=== PATIENT | female | born 1930 | race Caucasian/White ===

== ENCOUNTER 2017-05-01 14:21 | Emergency (ER) | payer MEDICARE, OTHER ==
--- NOTE | 2017-05-01 14:45 | ED Physician Documentation ---
PD HPI FOCAL NEURO - Stated complaint Stated Complaint: STROKE LIKE SYMPTOM - Chief complaint Chief Complaint: Neuro - History obtained from History obtained from: Patient - History of Present Illness Timing - onset: Other (86-year-old woman with history of giant cell arteritis, currently on 6-7 mg of prednisone a day. She says she gets worse symptoms if she goes down to 6 mg. Starting yesterday she had a left-sided headache with some facial numbness on the left and decreased vision in the right eye only which is now better. She still has mild facial numbness but the other symptoms are gone. No weakness, numbness, or tingling in the arms or legs. She also has a history of a vertebral aneurysm, sounds like that was treated conservatively.) Review of Systems Constitutional: denies: Fever, Chills, Fatigue (But chronically poor sleep from the prednisone) Nose: denies: Rhinorrhea / runny nose, Congestion Cardiac: denies: Chest pain / pressure, Palpitations GI: denies: Abdominal Pain, Nausea, Vomiting PD PAST MEDICAL HISTORY - Past Medical History Cardiovascular: Hypertension, Arrhythmia Respiratory: None Neuro: CVA, TIA, Headache/migraine Endocrine/Autoimmune: Systemic lupus erythematosus GI: Other HEENT: None Musculoskeletal: Osteoarthritis - Past Surgical History 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 HEENT: Cataracts - Present Medications Home Medications: Ambulatory Orders Medication Instructions Recorded Confirmed Multivitamin [Multi-Vitamin Daily] 1 each PO DAILY 11/21/13 05/01/17 Prednisone 6 mg PO DAILY 11/21/13 05/01/17 Clopidogrel [Plavix] 75 mg PO DAILY 05/29/15 05/01/17 Vitamins A and D [Vitamin A and D] 1 mg PO DAILY 05/29/15 05/01/17 - Allergies Allergies/Adverse Reactions: Allergies Allergy/AdvReac Type Severity Reaction Status Date / Time penicillin G Allergy Unknown Unknown Verified 05/29/15 10:58 Any fragrances Allergy Severe Respiratory Uncoded 05/29/15 10:58 Preservative in IV solution Allergy Severe Itching Uncoded 05/29/15 10:58 - Social History Does the pt smoke?: No Smoking Status: Never smoker Does the pt drink ETOH?: Yes Does the pt have substance abuse?: No - Immunizations Immunizations are current?: Yes PD ED PE NORMAL - Vitals Vital signs reviewed: Yes - General General: Alert and oriented X 3, No acute distress - HEENT HEENT: PERRL, EOMI, Ears normal, Moist mucous membranes, Pharynx benign, Dentition benign - Neck Neck: Supple, no meningeal sign, No bony TTP - Cardiac Cardiac: RRR, No murmur - Respiratory Respiratory: No respiratory distress, Clear bilaterally - Abdomen Abdomen: Normal bowel sounds, Soft, Non tender - Back Back: No CVA TTP, No spinal TTP - Derm Derm: Normal color, Warm and dry - Extremities Extremities: No edema, No calf tenderness / cord - Neuro Neuro: Alert and oriented X 3, Normal speech - Psych Psych: Normal mood, Normal affect NIHSS - Time Time: 14:38 - Level of Consciousness Level of consciousness: (0) Alert, Keenly responsive LOC Questions: (0) Answers both Q's correct LOC Commands: (0) Performs both correctly - Gaze Best Gaze: (0) Normal - Visual Visual: (0) No loss - Facial Palsy Facial Palsy: (0) Normal, symmetrical movement - Motor Arms (both separate) Motor Arm (right): (0) No drift Motor Arm (left): (0) No drift - Motor Legs (both separate) Motor Leg (right): (0) No drift Motor Leg (left): (0) No drift - Limb Ataxia Limb Ataxia: (0) Absent - Sensory Sensory: (0) Normal - Best Language Best Language: (0) No aphasia - Dysarthria Dysarthria: (0) Normal - Extinction and Inattention (formally neg Extinction and inattention: (0) No abnormality - Total Score/Results Total Score/Result: 0 Results - Vitals Vitals: Vital Signs - 24 hr 05/01/17 05/01/17 14:23 16:00 Temperature 36.0 C L Heart Rate 76 62 Respiratory 16 13 Rate Blood Pressure 168/82 H 156/68 H O2 Saturation 99 97 Oxygen O2 Source Room air - EKG (time done) 1505 Rate: Rate (enter#) (66) Rhythm: NSR Alexander: Normal Intervals: Normal [place] QRS: Normal Ischemia: Normal ST segments Computer interpretation: Agree with computer - Labs Labs: Laboratory Tests 05/01/17 05/01/17 05/01/17 14:56 14:56 14:56 WBC 8.5 RBC 4.12 L Hgb 13.1 Hct 38.7 MCV 94.1 MCH 31.9 H MCHC 33.9 RDW 13.1 Plt Count 251 MPV 7.0 L Neut # 7.2 H Lymph # 0.8 L [place] # 0.4 Eos # 0.0 Baso # 0.0 Absolute Nucleated RBC 0.00 Nucleated RBC % 0.0 ESR 10 Sodium 132 L Potassium 4.5 Chloride 94 L Carbon Dioxide 31 Anion Gap 7.0 BUN 17 Creatinine 0.7 Estimated GFR (MDRD) 80 L Glucose 113 H Calcium 9.4 Total Bilirubin 0.5 AST 22 ALT 15 Alkaline Phosphatase 67 C-Reactive Protein < 1.0 Total Protein 7.2 Albumin 4.5 Globulin 2.7 Albumin/Globulin Ratio 1.7 Lipase 24 - Rads (name of study) MRI brain Radiology: Prelim report reviewed, See rad report (neg for acute) PD MEDICAL DECISION MAKING - ED course ED course: 86-year-old woman with giant cell arteritis and recent decrease in her steroids presents with symptoms that could be consistent with a very atypical stroke, MRI done for same and negative. She wants to go back up on her steroids for a few days which is not unreasonable, she has plenty of steroids at home and does not need a prescription. Departure - Departure Disposition: 01 Home, Self Care Clinical Impression: Temporal arteritis, Stroke-like symptoms Condition: Good Record reviewed to determine appropriate education?: Yes Instructions: Stroke Sx Comments: Increase her prednisone to 10 mg for the next 3 days, then back to 7 mg. Follow -up with your doctor as soon as possible, return if worse. Your blood pressure was elevated today on check into the emergency department. This does not mean that you have hypertension, it is a common phenomenon to come to the emergency department and have elevated blood pressure. I recommend that she see your primary care physician within the week to have it rechecked when you are feeling better.
[2017-05-01 15:07] LABS: BASOPHILS % (AUTO) 0.4 %; EOSINOPHILS % (AUTO) 0.1 %; HCT - HEMATOCRIT 38.7 % (37.0-47.0); HGB - HEMOGLOBIN 13.1 g/dL (12.0-16.0); LYMPHOCYTES # (AUTO) 0.8 10^3/uL (1.5-3.5); LYMPHOCYTES % (AUTO) 9.6 %; MEAN CORPUSCULAR HEMOGLOBIN 31.9 pg (27.0-31.0); MEAN CORPUSCULAR HGB CONC 33.9 g/dL (32.0-36.0); MEAN CORPUSCULAR VOLUME 94.1 fL (81.0-99.0); MONOCYTES # (AUTO) 0.4 10^3/uL (0.0-1.0); MONOCYTES % (AUTO) 5.2 %; NEUTROPHILS # (AUTO) 7.2 10^3/uL (1.5-6.6); NEUTROPHILS % (AUTO) 84.7 %; RED BLOOD COUNT 4.12 10^6/uL (4.20-5.40); RED CELL DISTRIBUTION WIDTH 13.1 % (12.0-15.0); UNCORRECTED WHITE BLOOD COUNT 8.5 x10^3/uL; WHITE BLOOD COUNT 8.5 x10^3/uL (4.8-10.8)
[2017-05-01 15:25] LABS: ALBUMIN/GLOBULIN RATIO 1.7 (1.0-2.2); BILIRUBIN,TOTAL 0.5 mg/dL (0.2-1.0); BUN - BLOOD UREA NITROGEN 17 mg/dL (6-20); CALCIUM 9.4 mg/dL (8.5-10.3); CARBON DIOXIDE - CO2 31 mmol/L (21-32); CHLORIDE 94 mmol/L (101-111); CREATININE 0.7 mg/dL (0.4-1.0); GFR - MDRD 80 (>89); GLUCOSE 113 mg/dL (70-100); LIPASE 24 U/L (22-51); POTASSIUM 4.5 mmol/L (3.5-5.0); SODIUM 132 mmol/L (135-145); TOTAL PROTEIN 7.2 g/dL (6.7-8.2)
[2017-05-01 16:02] VITALS: BP 156/68
--- NOTE | 2017-05-01 16:29 | MRI Preliminary Report ---
Exam: MRI Brain W/O Impression: No acute infarct, mass lesion, another discrete acute process identified. Evident prior vascular inju ry, as described. SITE ID: [id number]
--- NOTE | 2017-05-01 16:31 | MRI Report ---
EXAM: MRI BRAIN WITHOUT CONTRAST COMPARISON: CT head, 05/29/2015; MRI, 03/02/2014. CLINICAL HISTORY: Left-sided headache, facial numbness, right eye deficit TECHNIQUE: Multiplanar multisequence imaging is performed through the head without contrast. FINDINGS: Diffusion-weighted imaging shows no acute infarct. 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 Ventricles are prominent, likely reflecting volume loss. No evident prior hemorrhage. T2 FLAIR imaging shows multifocal supratentorial white matter T2 elongation, appearance and distribut ion is nonspecific, likely reflecting small vessel angiopathy and prior lacunar infarcts. In comparis on with the prior MRI from 2013, overall extent is similar. T2 spin-echo imaging shows left cerebellar encephalomalacia, concordant with evolution of infarct see n on comparison MRI. 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 No abnormality in signal the brain parenchyma. No developmental anomalies. Pituitary fossa, clivus and foramen magnum are unremarkable. Visualized orbits, paranasal sinuses and mastoids are unremarkable. No calvarial signal abnormality. Gradient sequence shows no evident prior parenchymal hemorrhage. Impression: No acute infarct, mass lesion, another discrete acute process identified. Evident prior vascular inju ry, as described. Referring Provider Line: [phone] SITE ID: [id number]
== END 2017-05-01 16:46 | disposition home or self-care (01) ==
LOC: ED 14:21
DX: M31.6 Other giant cell arteritis (principal); I10 Essential (primary) hypertension; Z86.73 Personal history of transient ischemic attack (TIA), and cerebral infarction without residual deficits; M32.9 Systemic lupus erythematosus, unspecified; I49.9 Cardiac arrhythmia, unspecified; M19.90 Unspecified osteoarthritis, unspecified site
CPT/HCPCS: 36415; 70551; 80053; 83690; 85025; 85651; 86140; 93005; 99283

== ENCOUNTER 2018-10-24 09:26 | Emergency (ER) | payer MEDICARE, OTHER ==
--- NOTE | 2018-10-24 10:54 | XRAY Report ---
Reason: fall Procedure Date: 10/24/2018 Accession Number: [id number] / [id number] Procedure: XR - Hand 3 View RT CPT Code: FULL RESULT: EXAMS: RIGHT HAND AND WRIST RADIOGRAPHY EXAM DATE: 10/24/2018 10:40 AM. CLINICAL HISTORY: Fall. COMPARISON: WRIST 4 VIEW RT 10/24/2018 10:21 AM. TECHNIQUE: 3 views of hand and 4 views of the wrist. FINDINGS: Bones: The bones are qualitatively osteopenic; this limits evaluation for underlying fractures or masses. There is a lucency of the distal radius with interruption of the cortex, seen on multiple views and suspicious for fracture of the distal radius. Joints: There are degenerative changes of the first carpometacarpal interaction and trapezium. Soft Tissues: Normal. No soft tissue swelling. IMPRESSION: Distal radial fracture. RADIA The call report notification system was initiated by Dr. Elkin Johnson at 10:53 AM on 10/24/2018. ADDENDUM: 10/24/18 10:58 The above call report findings were discussed with Dr. Campos by Dr. Elkin Johnson at 10:58 AM on 10/24/2018.
--- NOTE | 2018-10-24 10:55 | XRAY Report ---
Reason: fall Procedure Date: 10/24/2018 Accession Number: [id number] / [id number] Procedure: XR - Wrist 4 View RT CPT Code: FULL RESULT: EXAMS: RIGHT HAND AND WRIST RADIOGRAPHY EXAM DATE: 10/24/2018 10:40 AM. CLINICAL HISTORY: Fall. COMPARISON: WRIST 4 VIEW RT 10/24/2018 10:21 AM. TECHNIQUE: 3 views of hand and 4 views of the wrist. FINDINGS: Bones: The bones are qualitatively osteopenic; this limits evaluation for underlying fractures or masses. There is a lucency of the distal radius with interruption of the cortex, seen on multiple views and suspicious for fracture of the distal radius. Joints: There are degenerative changes of the first carpometacarpal interaction and trapezium. Soft Tissues: Normal. No soft tissue swelling. IMPRESSION: Distal radial fracture. RADIA The call report notification system was initiated by Dr. Elkin Johnson at 10:53 AM on 10/24/2018. ADDENDUM: 10/24/18 10:58 The above call report findings were discussed with Dr. Campos by Dr. Elkin Johnson at 10:58 AM on 10/24/2018.
--- NOTE | 2018-10-24 11:23 | ED Physician Documentation ---
PD HPI UPPER EXT INJURY - Stated complaint Stated Complaint: WRIST INJURY - Chief complaint Chief Complaint: Ext Problem - History obtained from History obtained from: Patient - History of Present Illness Location: Right, Wrist (She slipped and fell yesterday in her garage under both wrists. 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 HEENT: Cataracts - Present Medications Home Medications: Ambulatory Orders Medication Instructions Recorded Confirmed Multivitamin [Multi-Vitamin Daily] 1 each PO DAILY 11/21/13 05/01/17 Prednisone 6 mg PO DAILY 11/21/13 05/01/17 Clopidogrel [Plavix] 75 mg PO DAILY 05/29/15 05/01/17 Vitamins A and D [Vitamin A and D] 1 mg PO DAILY 05/29/15 05/01/17 - Allergies Allergies/Adverse Reactions: Allergies Allergy/AdvReac Type Severity Reaction Status Date / Time penicillin G Allergy Unknown Unknown Verified 05/29/15 10:58 Any fragrances Allergy Severe Respiratory Uncoded 05/29/15 10:58 Preservative in IV solution Allergy Severe Itching Uncoded 05/29/15 10:58 - Social History Does the pt smoke?: No Smoking Status: Never smoker Does the pt drink ETOH?: Yes Does the pt have substance abuse?: No - Immunizations Immunizations are current?: Yes - POLST Patient has POLST: No PD ED PE NORMAL - Vitals Vital signs reviewed: Yes - General General: Alert and oriented X 3, No acute distress - Neck Neck: Supple, no meningeal sign, No bony TTP - Extremities Extremities: Other (Moderate distal radius tenderness without deformity. Limited range of motion. No hand or elbow tenderness.) - Neuro Neuro: Alert and oriented X 3, Normal speech Results - Vitals Vitals: Vital Signs - 24 hr 10/24/18 09:53 Temperature 36.3 C L Heart Rate 69 Respiratory 18 Rate Blood Pressure 136/59 H O2 Saturation 100 Oxygen O2 Source Room air - Rads (name of study) Right wrist and hand Radiology: EMP read contemporaneously (There is a nondisplaced little chip fracture of the distal radius, anterior side) Procedures - Splint (location) Right wrist Splint applied by: Tech Type of splint: Fiberglass, Volar cock up Other: Patient tolerated well, No complications, Neurovascular intact Departure - Departure Disposition: 01 Home, Self Care Clinical Impression: Distal radius fracture, right Qualifiers: Encounter type: initial encounter Fracture type: closed Fracture morphology: other intra-articular Qualified Code(s): S52.571A - Other intraarticular fracture of lower end of right radius, initial encounter for closed fracture Condition: Good Record reviewed to determine appropriate education?: Yes Instructions: ED Fx Forearm Radius Ulna No Redu Requ Follow-Up: Isma Esposito MD [Provider Admit Priv/Credential] - Within 1 week Comments: Keep the splint on and dry, Tylenol as per package instructions for pain. Return for new or worsening symptoms. Keep it elevated.
[2018-10-24 11:50] VITALS: BP 135/60
== END 2018-10-24 11:48 | disposition home or self-care (01) ==
LOC: ED 09:26
DX: S52.501A Unspecified fracture of the lower end of right radius, initial encounter for closed fracture (principal); W18.30XA Fall on same level, unspecified, initial encounter; Y92.008 Other place in unspecified non-institutional (private) residence as the place of occurrence of the external cause; I10 Essential (primary) hypertension
CPT/HCPCS: 29125; 99283

== ENCOUNTER 2019-01-19 16:27 | Outpatient (CLI) | payer MEDICARE, OTHER ==
--- NOTE | 2019-01-20 16:14 | XRAY Report ---
Reason: SPRAIN OF OTHER LIGAMENT OF LEFT ANKLE, INITIAL EN Procedure Date: 01/19/2019 Accession Number: [id number] / [id number] Procedure: XR - Ankle 3 View LT CPT Code: FULL RESULT: EXAM: LEFT ANKLE RADIOGRAPHY EXAM DATE: 01/19/2019 04:44 PM. CLINICAL HISTORY: Sprain of other ligament of left ankle, initial en. COMPARISON: None. TECHNIQUE: 3 views. FINDINGS: Bones: Normal. No fractures or bone lesions. Joints: Normal. No effusion. No subluxations. The ankle mortise is normally aligned. Soft Tissues: Swelling is seen about the ankle. Amorphous calcifications in soft tissues have an appearance most compatible with phleboliths. IMPRESSION: Soft tissue swelling without ankle fracture or dislocation detected. RADIA
== END 2019-01-19 16:28 | disposition home or self-care (01) ==
LOC: DI 16:27
PROVIDERS: ATTEND Family Medicine
DX: S93.492A Sprain of other ligament of left ankle, initial encounter (principal)

== ENCOUNTER 2019-07-10 16:46 | Outpatient (CLI) | payer MEDICARE, OTHER | END 2019-07-10 16:47 | disposition critical access hospital (66) | LOC: EMS 16:46 | PROVIDERS: ATTEND Surgery | DX: M25.551 Pain in right hip (principal) | CPT/HCPCS: A0425; A0427 ==

== ENCOUNTER 2019-07-10 17:06 | Inpatient (IN) | payer MEDICARE, OTHER ==
--- NOTE | 2019-07-10 17:18 | ED Physician Documentation ---
PD HPI LOWER EXT INJURY - Stated complaint Stated Complaint: GLF/ HIP PX - History obtained from History obtained from: Patient - History of Present Illness PD HPI LOW EXT INJURY LOCATION: Right (This is an 89-year-old woman with history of osteopenia. She plays ping-pong avidly but today decided to try pickleball. She tripped and fell onto her right hip. Has an isolated left right hip injury. Had [address] of f[address]anyl on the way in and declines pain medication on initial evaluation. No other injury. No head injury. 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 HEENT: Cataracts - Present Medications Home Medications: Ambulatory Orders Medication Instructions Recorded Confirmed Multivitamin [Multi-Vitamin Daily] 1 each PO DAILY 11/21/13 07/10/19 Prednisone 9 mg PO DAILY 11/21/13 07/10/19 Clopidogrel [Plavix] 75 mg PO DAILY 05/29/15 07/10/19 Ascorbic Acid [Vitamin C] 500 mg PO DAILY 07/10/19 07/10/19 Calcium Carbonate [Calcium] 600 mg PO DAILY 07/10/19 07/10/19 Cholecalciferol (Vitamin D3) 1,000 units PO DAILY 07/10/19 07/10/19 [Vitamin D3] - Allergies Allergies/Adverse Reactions: Allergies Allergy/AdvReac Type Severity Reaction Status Date / Time penicillin G Allergy Unknown Unknown Verified 05/29/15 10:58 Any fragrances Allergy Severe Respiratory Uncoded 05/29/15 10:58 Preservative in IV solution Allergy Severe Itching Uncoded 05/29/15 10:58 - Living Situation Living Situation: reports: With spouse/s.o. - Social History Does the pt smoke?: No Smoking Status: Never smoker Does the pt drink ETOH?: Yes Does the pt have substance abuse?: No - Family History Family history: reports: Non contributory - Immunizations Immunizations are current?: Yes - POLST Patient has POLST: No PD ED PE NORMAL - Vitals Vital signs reviewed: Yes - General General: Alert and oriented X 3, No acute distress - HEENT HEENT: PERRL, EOMI - Neck Neck: Supple, no meningeal sign, No bony TTP - Cardiac Cardiac: RRR, No murmur - Respiratory Respiratory: No respiratory distress, Clear bilaterally - Abdomen Abdomen: Soft, Non tender - Back Back: No CVA TTP, No spinal TTP - Derm Derm: Normal color, Warm and dry - Extremities Extremities: Other (The right hip is deformed, shortened and externally rotated) - Neuro Neuro: Alert and oriented X 3, Normal speech - Psych Psych: Normal mood, Normal affect Results - Vitals Vitals: Vital Signs - 24 hr 07/10/19 17:14 Temperature 36.4 C L Heart Rate 82 Respiratory 18 Rate Blood Pressure 203/90 H O2 Saturation 98 Oxygen O2 Source Room air - Labs Labs: Laboratory Tests 07/10/19 07/10/19 07/10/19 17:55 17:55 17:55 WBC 8.8 RBC 3.98 L Hgb 12.7 Hct 39.5 MCV 99.2 H MCH 31.9 H MCHC 32.2 RDW 12.1 Plt Count 275 MPV 9.0 Neut # (Auto) 7.0 H Lymph # (Auto) 0.9 L [place] # (Auto) 0.8 Eos # (Auto) 0.0 Baso # (Auto) 0.1 Absolute Nucleated RBC 0.00 Nucleated RBC % 0.0 PT 11.8 INR 1.0 Sodium Potassium Chloride Carbon Dioxide Anion Gap BUN Creatinine Estimated GFR (MDRD) Glucose Calcium Total Bilirubin AST ALT Alkaline Phosphatase Total Protein Albumin Globulin Albumin/Globulin Ratio Lipase Blood Type A NEGATIVE Antibody Screen NEGATIVE 07/10/19 17:55 WBC RBC Hgb Hct MCV MCH MCHC RDW Plt Count MPV Neut # (Auto) Lymph # (Auto) [place] # (Auto) Eos # (Auto) Baso # (Auto) Absolute Nucleated RBC Nucleated RBC % PT INR Sodium 136 Potassium 4.2 Chloride 93 L Carbon Dioxide 35 H Anion Gap 8.0 BUN 26 H Creatinine 0.7 Estimated GFR (MDRD) 79 L Glucose 106 H Calcium 9.2 Total Bilirubin 0.5 AST 20 ALT 17 Alkaline Phosphatase 49 Total Protein 6.4 L Albumin 4.0 Globulin 2.4 Albumin/Globulin Ratio 1.7 Lipase 33 Blood Type Antibody Screen PD MEDICAL DECISION MAKING - ED course ED course: This is an elderly woman who has an isolated right hip injury, and intertrochan teric fracture. She is on Plavix which may delay time to fixation, consulted both orthopedics and the hospitalist for admission. - Consults Consults: Consulted (name) (Fernando Lopez, manager of broadcast content ortho, spoke at 1756; lovenox now, defers to med for admit. Prob fix Wed d/t plavix) Departure - Departure Disposition: 66 [facility] DC/Xfer Clinical Impression: Intertrochanteric fracture of right femur Qualifiers: Encounter type: initial encounter Fracture type: closed Fracture alignment: displaced Qualified Code(s): S72.141A - Displaced intertrochanteric fracture of right femur, initial encounter for closed fracture Condition: Fair Discharge Date/Time: 07/10/19 19:16
[2019-07-10] MEDS ORDERED: ENOXAPARIN 40 MG/0.4 ML SYRINGE SUBQ STA (17:55)
[2019-07-10] MEDS ORDERED: fentaNYL 100 MCG/2 ML VIAL IVP STA (18:01)
[2019-07-10 18:06] LABS: BASOPHILS # (AUTO) 0.1 10^3/uL (0.0-0.1); BASOPHILS % (AUTO) 0.7 %; EOSINOPHILS % (AUTO) 0.3 %; HGB - HEMOGLOBIN 12.7 g/dL (12.0-16.0); LYMPHOCYTES # (AUTO) 0.9 10^3/uL (1.5-3.5); LYMPHOCYTES % (AUTO) 10.6 %; MEAN CORPUSCULAR HEMOGLOBIN 31.9 pg (27.0-31.0); MEAN CORPUSCULAR HGB CONC 32.2 g/dL (32.0-36.0); MEAN CORPUSCULAR VOLUME 99.2 fL (81.0-99.0); MONOCYTES # (AUTO) 0.8 10^3/uL (0.0-1.0); MONOCYTES % (AUTO) 8.6 %; NEUTROPHILS % (AUTO) 79.3 %; PLT - PLATELET COUNT 275 10^3/uL (130-450); RED BLOOD COUNT 3.98 10^6/uL (4.20-5.40); RED CELL DISTRIBUTION WIDTH 12.1 % (12.0-15.0); WHITE BLOOD COUNT 8.8 x10^3/uL (4.8-10.8)
--- NOTE | 2019-07-10 18:08 | XRAY Report ---
Reason: hip pain Procedure Date: 07/10/2019 Accession Number: [id number] / [id number] Procedure: XR - Hip w/Pelvis 2-3V RT CPT Code: Final Report FULL RESULT: EXAM: PELVIS AND RIGHT HIP RADIOGRAPHY EXAM DATE: 07/10/2019 05:44 PM. CLINICAL HISTORY: Trauma, pain. COMPARISON: None. TECHNIQUE: Pelvis and right hip, each 1 view. FINDINGS: Bones: Mildly impacted intertrochanteric fracture with nearly compete apposition, small amount of comminution involving the lesser trochanter, and slight apex lateral and anterior angulation. No subtrochanteric cortical involvement. Otherwise unremarkable. Joints: Hip joint spaces generally well preserved. Unremarkable SI joints. Soft Tissues: Nonspecific bowel gas pattern. Soft tissue swelling. IMPRESSION: Right intertrochanteric fracture. RADIA
[2019-07-10] MEDS ORDERED: HYDROmorphone 1 MG/ML CARPUJECT IVP PRN (18:12)
[2019-07-10] MEDS ORDERED: ONDANSETRON 4 MG/2 ML VIAL IVP PRN (18:12)
[2019-07-10] MEDS ORDERED: ONDANSETRON ODT 4 MG TABLET TL PRN (18:12)
[2019-07-10] MEDS ORDERED: SODIUM CHLORIDE FLUSH 0.9% 10 ML SYRINGE IVP PRN (18:12)
[2019-07-10 18:16] LABS: ALBUMIN/GLOBULIN RATIO 1.7 (1.0-2.2); BILIRUBIN,TOTAL 0.5 mg/dL (0.2-1.0); CALCIUM 9.2 mg/dL (8.5-10.3); CREATININE 0.7 mg/dL (0.4-1.0); TOTAL PROTEIN 6.4 g/dL (6.7-8.2)
[2019-07-10 18:19] LABS: PT - PROTHROMBIN TIME 11.8 secs (9.9-12.6)
--- NOTE | 2019-07-10 18:23 | HISTORY & PHYSICAL EXAMINATION ---
Chief Complaint - Chief Complaint Chief Complaint: fall while playing pickleball History of Present Illness - Admitted From Admitted From:: Home/ER - History Obtained From Records Reviewed: [facility] History obtained from: patient, , Dr. Ramachandran Exam Limitations: none - History of Present Illness HPI Comment/Other: This is an absolutely harini elderly female who is very independent, still plays ping-pong competitively. 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 She is been unable to weight-bear and has pain in the right hip area. She came to the emergency room and was evaluated by Dr. Ramachandran and was found to have a right intertrochanteric hip fracture. She is on Plavix for history of TIA/CVA in the past. On review of systems she has not had a recent NJ, nor has she ever had an NJ. She has no history of valvular heart disease, shortness of breath, edema orthopnea. Years ago palpitations arose in the face of a high dose of steroids for temporal arteritis. These were PVCs and PAC's. She says that it gave her an irregular heartbeat but she was never told that she had atrial fibrillation. She has no lung or kidney diseases. She is postmenopausal, never been on hormone replacement therapy, and has been on steroids since approximately 2013 for temporal arteritis. As such she is at increased risk for osteoporosis. Dr. Fernando Lopez, orthopedics, has asked us to admit the patient and he will consult. He may be doing her surgery tomorrow which is Wednesday. But he will operate no later than Wednesday. 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 She presented as vision changes, headache in early 2013. Has been on steroids since then. If her steroid dose drops, symptoms return.) GI: reports: Diverticulitis SCENE SHIFTER: reports: Other ([id number], postmenopausal atrophic vaginitis) HEENT: reports: None Psych: reports: None Musculoskeletal: reports: Osteoarthritis MRSA Hx?: No - Past Surgical History Ortho: reports: Other (ORIF right arm fax in ) /SCENE SHIFTER: reports: Hysterectomy (1986) HEENT: reports: Cataracts - Family & Social History Family History Comment/Other: Mother and father of old age in their 80s. One brother is 64 and completely healthy. One brother in his 70s of cancer. Her 3 children are healthy. Her oldest son is a physician. Living arrangement: At home Living Situation: With spouse/s.o. Social History Notes: Born and raised in [place]. 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 Been to her for over 60 years. [place] She pays the bills because he forgets to do things and will over draw them or put them in risk for not paying their bills. That happened in their 30s. She quit driving 6 years ago. 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 She smoked for a very short time when she was very young. She has not since.. She drinks a couple of thimble folds of wine a day. - Substance History Use: Uses substance without health or social issues: NONE Abuse: Recurrent use of substance despite neg consequences: NONE Dependence: Experiences withdrawal or developed tolerances: NONE - POLST Patient has POLST: No POLST Status: DNR Meds/Allgy - Home Medications Home Medications: Ambulatory Orders Medication Instructions Recorded Confirmed Multivitamin [Multi-Vitamin Daily] 1 each PO DAILY 11/21/13 07/10/19 Prednisone 9 mg PO DAILY 11/21/13 07/10/19 Clopidogrel [Plavix] 75 mg PO DAILY 05/29/15 07/10/19 Ascorbic Acid [Vitamin C] 500 mg PO DAILY 07/10/19 07/10/19 Calcium Carbonate [Calcium] 600 mg PO DAILY 07/10/19 07/10/19 Cholecalciferol (Vitamin D3) 1,000 units PO DAILY 07/10/19 07/10/19 [Vitamin D3] - Allergies Allergies/Adverse Reactions: Allergies Allergy/AdvReac Type Severity Reaction Status Date / Time penicillin G Allergy Unknown Unknown Verified 05/29/15 10:58 Any fragrances Allergy Severe Respiratory Uncoded 05/29/15 10:58 Preservative in IV solution Allergy Severe Itching Uncoded 05/29/15 10:58 Review of Systems - Constitutional Constitutional: denies: Fatigue, Fever, Chills, Malaise, Weakness, Poor appetite, Diaphoresis - Eyes Eyes: denies: Pain, Irritation, Amaurosis, Blurred vision - Ears, Nose & Throat Ears, Nose & Throat: denies: Ear pain, Hearing loss, Hearing aids, Vertigo, Nasal discharge, Sore throat, Hoarseness - Cardiovascular Cariovascular: reports: Irregular heart rate, Palpitations. denies: Chest pain, Edema, Lightheadedness, Syncope, Exertional dyspnea, Decr. exercise tolerance - Respiratory Respiratory: denies: Cough, Sputum production, Wheezing, Snoring, Hemoptysis, Orthopnea - Gastrointestinal Gastrointestinal: denies: Abdominal pain, Abdominal distention, Diarrhea, Change in bowel habits, Rectal bleeding - Genitourinary Genitourinary: reports: Incontinence. denies: Dysuria, Frequency, Urgency, Hematuria - Musculoskeletal Musculoskeletal: reports: Joint pain (With aging. Nothing new. Does not slow her down.). denies: Muscle pain, Back pain - Integumentary Integumentary: denies: Rash, Pruritis, Lesions - Neurological Neurological: reports: Headache (If her temporal arteritis is acting up but it has not for months). denies: General weakness, Focal weakness, Memory problems, Abnormal gait, Seizures - Psychiatric Psychiatric: denies: Depression, Anxiety, Suicidal - Endocrine Endocrine: denies: Polyuria, Polydypsia, Polyphagia - Hematologic/Lymphatic Hematologic/Lymphatic: reports: Bruising. denies: Anemia, Petechiae, Blood clots Prior Level of Functionality: Completely independent with dressing herself, feeding herself, paying bills, working in the garden, and cooking. Does not use any durable medical equipment. She just does not drive anymore. Exam - Vital Signs Reviewed Vital Signs: Yes Vital Signs: Vital Signs x48h Temp Pulse Resp BP Pulse Ox 07/10/19 17:14 36.4 C L 82 18 203/90 H 98 - Physical Exam General Appearance: positive: Alert, Moderate distress (Only when she moves. Then she cries out in agonizing pain from the right femur movement.) Eyes Bilateral: positive: PERRL, EOMI ENT: positive: Pharynx nml Neck: positive: No JVD. negative: Stiff neck, Carotid bruit Respiratory: positive: Chest non-tender. negative: Wheezes, Rales, Rhonchi Cardiovascular: positive: Regular rate & rhythm, Systolic murmur. negative: Gallop/S4, Friction rub Peripheral Pulses: positive: 1+ Abdomen: positive: Non-tender, No organomegaly, Nml bowel sounds, No distention Skin: positive: No rash, Warm, Other (Bruises over the forearms where she fell and hit her arms on the floor) Extremities: positive: Non-tender, Full ROM (Except for the right hip). negative: Nml appearance (Right leg foreshortened and externally rotated and will yell with pain if the leg is moved), Calf tenderness Neurologic/Psychiatric: positive: Oriented x3, CN's nml (2-12), Motor nml Conclusion/Plan - Problem List (1) Intertrochanteric fracture of right femur Conclusion/Plan: This harini patient has risk of osteoporosis from aging, and steroid use. She is fallen and now suffered a fracture. Plan: Orthopedic consult with Dr. Fernando Lopez Plan is for surgery tomorrow or the day after with Plavix being held N.p.o. after midnight for tonight in case she is going to surgery in the morning Dilaudid as needed pain Qualifiers: Encounter type: initial encounter Fracture type: closed Fracture alignment: displaced Qualified Code(s): S72.141A - Displaced intertrochanteric fracture of right femur, initial encounter for closed fracture (2) Pre-op evaluation Conclusion/Plan: NSQIP surgical risk calculator has her at 8% risk for serious complication, 0.2% cardiac complication, 0.4% surgical site infection. It is expected that she will be discharged to a rehab facility with a 5.1% readmission rate. Predicted length of stay is 5 days. She has an average chance of functional decline of 87% and an average chance of outcome of needing a mobility aid of 98%. (3) History of hypertension Conclusion/Plan: She states that her blood pressure is usually in the 130s over 70s. In the emergency room she is been 203/90 and 167/83. I would expect most of this is due to pain. She has no symptoms of chest pain, shortness of breath, headache. Will give as needed hydralazine. (4) Temporal arteritis Conclusion/Plan: Giant cell arteritis give her usual dose of steroid tonight, and tomorrow after surgery. She is very anxious she gets the right dose because she does not want to regress with her disease. 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 She is very concerned about having to stop it associated with surgery. I reassured her that for the most part her risk of recurrent stroke is low. However the surgery is necessary. We will resume the Plavix as soon as orthopedic surgery says it is okay to. - Lab Results Lab results reviewed: Yes Fish Bones: 07/10/19 17:55 07/10/19 17:55 - Diagnostic Imaging Results Diagnostic Imaging Results: positive: Final report reviewed - EKG Results EKG Interpreted Independently: Yes Core Measures - Anticipated LOS I expect patient to be DC'd or transferred within 96 hours.: Yes - DVT/VTE - Prophylaxis VTE/DVT Device ordered at admit?: Yes
[2019-07-10] MEDS ORDERED: SODIUM CHLORIDE 0.9% 1,000 ML IV SCH (19:00)
[2019-07-10] MEDS: ACETAMINOPHEN 325 MG TABLET PO PRN (20:05)
[2019-07-10] MEDS: oxyCODONE 5 MG TABLET PO PRN (20:59)
[2019-07-11] MEDS: oxyCODONE 5 MG TABLET PO PRN ×2 (00:35→17:57)
[2019-07-11] MEDS: ACETAMINOPHEN 325 MG TABLET PO PRN ×3 (00:36→22:27)
[2019-07-11] MEDS: SODIUM CHLORIDE FLUSH 0.9% 10 ML SYRINGE IVP SCH ×3 (00:58→17:47)
[2019-07-11] MEDS ORDERED: methylPREDNISolone SUCCINATE 40 MG/ML VIAL IVP STA ×2 (08:50→08:56)
[2019-07-11] MEDS: hydrALAZINE INJ 20 MG/ML VIAL IVP PRN ×2 (08:52→17:42)
--- NOTE | 2019-07-11 09:24 | ANESTHESIA ---
Pre-Anesthesia VS, & Labs - Diagnosis right hip fx - Procedure right hip nailing Vital Signs: Temp Pulse Resp BP Pulse Ox 36.7 C 71 14 174/70 H 99 07/11/19 07:49 07/11/19 07:49 07/11/19 07:49 07/11/19 08:52 07/11/19 07:49 Height 5 ft 5 in Weight (kg) 51.5 kg Body Mass Index 18.8 - Is Patient ?: No - Lab Results Current Lab Results: Laboratory Tests 07/10/19 20:43: Blood Type Recheck A NEGATIVE 07/10/19 17:55: Sodium 136, Potassium 4.2, Chloride 93 L, Carbon Dioxide 35 H, Anion Gap 8.0, BUN 26 H, Creatinine 0.7, Estimated GFR (MDRD) 79 L, Glucose 106 H, Calcium 9.2, Total Bilirubin 0.5, AST 20, ALT 17, Alkaline Phosphatase 49, Total Protein 6.4 L, Albumin 4.0, Globulin 2.4, Albumin/Globulin Ratio 1.7, Lipase 33 07/10/19 17:55: PT 11.8, INR 1.0 07/10/19 17:55: WBC 8.8, RBC 3.98 L, Hgb 12.7, Hct 39.5, MCV 99.2 H, MCH 31.9 H, MCHC 32.2, RDW 12.1, Plt Count 275, MPV 9.0, Neut # (Auto) 7.0 H, Lymph # (Auto) 0.9 L, [place] # (Auto) 0.8, Eos # (Auto) 0.0, Baso # (Auto) 0.1, Absolute Nucleated RBC 0.00, Nucleated RBC % 0.0 07/10/19 17:55: Blood Type A NEGATIVE, Antibody Screen NEGATIVE Fish Bones: 07/10/19 17:55 07/10/19 17:55 Home Medications and Allergies Home Medications: Ambulatory Orders Ascorbic Acid [Vitamin C] 500 mg PO DAILY 07/10/19 Calcium Carbonate [Calcium] 600 mg PO DAILY 07/10/19 Cholecalciferol (Vitamin D3) [Vitamin D3] 1,000 units PO DAILY 07/10/19 Active Medications Acetaminophen (Tylenol) 650 mg PO Q4HR PRN PRN Reason: Pain 1 to 4 Last Admin: 07/11/19 00:36 Dose: 650 mg Hydralazine HCl (Apresoline Inj) 10 mg IVP QID PRN PRN Reason: Hypertensive Emergency Last Admin: 07/11/19 08:52 Dose: 10 mg Hydromorphone HCl (Dilaudid Inj Carp) 1 mg IVP Q2HR PRN PRN Reason: Pain 8 to 10 Sodium Chloride (Normal Saline 0.9%) 1,000 mls @ 100 mls/hr IV .Q10H [facility] Stop: 07/11/19 10:27 Ondansetron HCl (Zofran Inj) 4 mg IVP Q6HR PRN PRN Reason: Nausea / Vomiting Ondansetron HCl (Zofran Odt) 4 mg TL Q6HR PRN PRN Reason: Nausea / Vomiting Oxycodone HCl (Roxicodone) 5 mg PO Q4HR PRN PRN Reason: Pain 5 to 7 Last Admin: 07/11/19 00:35 Dose: 5 mg Prednisone (Deltasone) 9 mg PO DAILY [facility] Sodium Chloride (Normal Saline Flush 0.9%) 10 ml IVP PRN PRN PRN Reason: NEEDED PER PROVIDER ORDERS Sodium Chloride (Normal Saline Flush 0.9%) 10 ml IVP 0100,0900,1700 [facility] Last Admin: 07/11/19 08:44 Dose: 10 ml Multivitamin [Multi-Vitamin Daily] 1 each PO DAILY 11/21/13 Prednisone 9 mg PO DAILY 11/21/13 Clopidogrel [Plavix] 75 mg PO DAILY 05/29/15 Ascorbic Acid [Vitamin C] 500 mg PO DAILY 07/10/19 Calcium Carbonate [Calcium] 600 mg PO DAILY 07/10/19 Cholecalciferol (Vitamin D3) [Vitamin D3] 1,000 units PO DAILY 07/10/19 Allergies/Adverse Reactions: Allergies Allergy/AdvReac Type Severity Reaction Status Date / Time penicillin G Allergy Unknown Unknown Verified 05/29/15 10:58 Any fragrances Allergy Severe Respiratory Uncoded 05/29/15 10:58 Preservative in IV solution Allergy Severe Itching Uncoded 05/29/15 10:58 Anes History & Medical History - Anesthetic History Anesthesia Complications: reports: No previous complications, Other-see comment (9mg of prednisone po qday for giant cell arthritis autoimmune disease) Family history of Anesthesia Complications: Denies Family history of Malignant Hyperthermia: Denies - Medical History Cardiovascular: reports: Hypertension (No longer on medication), High cholesterol (No longer on medication ), Arrhythmia (PACs and PVCs) Pulmonary: reports: None Gastrointestinal: reports: Diverticulitis Urinary: reports: None Neuro: reports: 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 Last plavix taken on 07/09/19. Reports loss of smell and taste after the stroke) Musculoskeletal: reports: Osteoarthritis ("Giant cell arthritis" on prednisone) Endocrine/Autoimmune: reports: HyPOthyroidism (No longer on medication), Systemic lupus erythematosus (As well as giant cell arteritis. She presented as vision changes, headache in early 2013. Has been on steroids since then. If her steroid dose drops, symptoms return.) Blood Disorders: reports: None Skin: reports: None Smoking Status: Never smoker Psychosocial: reports: No issues indicated - Surgical History Eyes Ears Nose Throat (EENT): Cataracts Gynecologic: Hysterectomy (1986) Orthopedic: Other (ORIF right arm fax in ) Exam General: Alert, Oriented x3, Cooperative, No acute distress Dental: Partials Upper Mouth Openin Fingerbreadth Neck Mobility: Normal Mallampati classification: II Thyromental Distance: 4-6 cm Respiratory: Lungs clear, Normal breath sounds, No respiratory distress, No accessory muscle use Cardiovascular: Regular rate, Normal S1, Normal S2, No murmurs Abdomen: Normal bowel sounds, Soft, No tenderness, No hepatospenomegaly, No masses Extremities: No clubbing, No cyanosis, No edema, Normal pulses, No tenderness/swelling Neurological: Normal gait, Normal speech, Strength at 5/5 X4 ext, Normal tone, Sensation intact, Cranial nerves 3-12 NL, Reflexes 2+ Mental/Cognitive Status: Alert/Oriented X3, Normal for patient Cognitive Status: Within normal limits Plan Anesthesia Type: General Consent for Procedure(s) Verified and Reviewed: Yes Code Status: Attempt Resuscitation ASA classification: 3-Severe systemic disease Is this case an emergency?: Yes
[2019-07-11] MEDS ORDERED: ceFAZolin 2 GM in SODIUM CHLORIDE 0.9% 100ML 100 ML IV STA (09:36)
[2019-07-11] MEDS ORDERED: SODIUM CHLORIDE 0.9% 1,000 ML IV SCH ×2 (10:00→17:00)
--- NOTE | 2019-07-11 10:56 | PROVIDER PROGRESS NOTE ---
Subjective - Prog Note Date Prog Note Date: 07/11/19 Prog Note Time: 10:55 - Subjective Pt reports feeling: No change Objective - Vital Signs/Intake & Output Vital Signs: Vital Signs x48h Temp Pulse Resp BP BP Pulse Ox 07/11/19 09:22 159/71 H 07/11/19 08:52 174/70 H 07/11/19 07:49 36.7 C 71 14 174/70 H 99 Intake & Output: Intake & Output 07/08/19 07/09/19 07/10/19 07/11/19 23:59 23:59 23:59 23:59 Intake Total 360 973.3 Output Total 0 650 Balance 360 323.3 - Lab Results Fish Bones: 07/10/19 17:55 07/10/19 17:55 Other Labs: Lab Results x24hrs 07/10/19 07/10/19 07/10/19 Range/Units 20:43 17:55 17:55 WBC (4.8-10.8) x10^3/uL RBC (4.20-5.40) 10^6/uL Hgb (12.0-16.0) g/dL Hct (37.0-47.0) % MCV (81.0-99.0) fL MCH (27.0-31.0) pg MCHC (32.0-36.0) g/dL RDW (12.0-15.0) % Plt Count (130-450) 10^3/uL MPV (7.9-10.8) fL Neut # (Auto) (1.5-6.6) 10^3/uL Lymph # (Auto) (1.5-3.5) 10^3/uL [place] # (Auto) (0.0-1.0) 10^3/uL Eos # (Auto) (0.0-0.7) 10^3/uL Baso # (Auto) (0.0-0.1) 10^3/uL Absolute Nucleated RBC x10^3/uL Nucleated RBC % /100WBC PT 11.8 (9.9-12.6) secs INR 1.0 (0.8-1.2) Sodium 136 (135-145) mmol/L Potassium 4.2 (3.5-5.0) mmol/L Chloride 93 L (101-111) mmol/L Carbon Dioxide 35 H (21-32) mmol/L Anion Gap 8.0 (6-13) BUN 26 H (6-20) mg/dL Creatinine 0.7 (0.4-1.0) mg/dL Estimated GFR (MDRD) 79 L (>89) Glucose 106 H (70-100) mg/dL Calcium 9.2 (8.5-10.3) mg/dL Total Bilirubin 0.5 (0.2-1.0) mg/dL AST 20 (10-42) IU/L ALT 17 (10-60) IU/L Alkaline Phosphatase 49 (42-121) IU/L Total Protein 6.4 L (6.7-8.2) g/dL Albumin 4.0 (3.2-5.5) g/dL Globulin 2.4 (2.1-4.2) g/dL Albumin/Globulin Ratio 1.7 (1.0-2.2) Lipase 33 (22-51) U/L Blood Type Blood Type Recheck A NEGATIVE Antibody Screen 07/10/19 07/10/19 Range/Units 17:55 17:55 WBC 8.8 (4.8-10.8) x10^3/uL RBC 3.98 L (4.20-5.40) 10^6/uL Hgb 12.7 (12.0-16.0) g/dL Hct 39.5 (37.0-47.0) % MCV 99.2 H (81.0-99.0) fL MCH 31.9 H (27.0-31.0) pg MCHC 32.2 (32.0-36.0) g/dL RDW 12.1 (12.0-15.0) % Plt Count 275 (130-450) 10^3/uL MPV 9.0 (7.9-10.8) fL Neut # (Auto) 7.0 H (1.5-6.6) 10^3/uL Lymph # (Auto) 0.9 L (1.5-3.5) 10^3/uL [place] # (Auto) 0.8 (0.0-1.0) 10^3/uL Eos # (Auto) 0.0 (0.0-0.7) 10^3/uL Baso # (Auto) 0.1 (0.0-0.1) 10^3/uL Absolute Nucleated RBC 0.00 x10^3/uL Nucleated RBC % 0.0 /100WBC PT (9.9-12.6) secs INR (0.8-1.2) Sodium (135-145) mmol/L Potassium (3.5-5.0) mmol/L Chloride (101-111) mmol/L Carbon Dioxide (21-32) mmol/L Anion Gap (6-13) BUN (6-20) mg/dL Creatinine (0.4-1.0) mg/dL Estimated GFR (MDRD) (>89) Glucose (70-100) mg/dL Calcium (8.5-10.3) mg/dL Total Bilirubin (0.2-1.0) mg/dL AST (10-42) IU/L ALT (10-60) IU/L Alkaline Phosphatase (42-121) IU/L Total Protein (6.7-8.2) g/dL Albumin (3.2-5.5) g/dL Globulin (2.1-4.2) g/dL Albumin/Globulin Ratio (1.0-2.2) Lipase (22-51) U/L Blood Type A NEGATIVE Blood Type Recheck Antibody Screen NEGATIVE Assessment/Plan - Problem List (1) Intertrochanteric fracture of right femur Impression: Plan: To OR for surgical fixation of right hip fracture later today. Full note dictated. Qualifiers: Encounter type: initial encounter Fracture type: closed Fracture alignment: displaced Qualified Code(s): S72.141A - Displaced intertrochanteric fracture of right femur, initial encounter for closed fracture
--- NOTE | 2019-07-11 10:57 | CONSULTATION NOTE ---
DATE OF SERVICE: 07/11/2019 Physician: Fernando Lopez MD ORTHOPEDIC CONSULTATION REFERRING PHYSICIAN: Darell Campos MD of the emergency room department. CHIEF COMPLAINT: "My right hip hurts." HISTORY OF PRESENT ILLNESS: Patient is an 89-year-old female who apparently was playing pi [employer] ball yesterday afternoon when she fell backwards during the game, landing onto her right buttock . She noted immediate pain and deformity to her leg. She was unable to stand or weight bear on the right leg. No loss of consciousness or other injuries were noted. She was taken by ambulance to the emergency room here at [facility] where x-rays revealed her right intertrochanteric hi p fracture. No other issues were noted on her evaluation. She was subsequently admitted to the hosp ital in preparation for surgical fixation of her fracture today. PHYSICAL EXAMINATION: Patient's right hip shows some mild swelling and tenderness particularly over the lateral aspect of her right hip. Painful range of motion hip was noted. She moves her toes on c ommand. Sensation intact throughout the lower extremity. Good capillary filling noted at the toes. IMAGING: X-rays shows a minimally displaced right intertrochanteric hip fracture. ASSESSMENT 1. Closed right intertrochanteric hip fracture. 2. History of ischemic vertebrobasilar artery cerebellar stroke - is currently on Plavix. PLAN: We will plan on doing a short Intertan nailing to provide surgical fixation for a right hip fr acture. Although she has been on Plavix, there appears to be no contraindication with proceeding wit h surgery within 24 to 48 hours upon traumatic fracture to the hip. Risks and benefits of surgery we re explained to patient, including blood loss, nerve damage, wound infection, malunion, nonunion, melva p venous thromboses, etc. She appears to understand these risks. All of her questions were answered . She wishes to proceed with surgery as planned later today. The leg was marked. Consent signed. TD: 07/11/2019 10:49
--- NOTE | 2019-07-11 11:01 | PROVIDER PROGRESS NOTE ---
Assessment/Plan - Problem List (1) Intertrochanteric fracture of right femur Qualifiers: Encounter type: initial encounter Fracture type: closed Fracture alignmen t: displaced Qualified Code(s): S72.141A - Displaced intertrochanteric fracture of right femur, initial encounter for closed fracture Assessment/Plan: plan to have hip repair today by orthopedics surgeon, will followup continue pain control DVT prophylaxis will followup PT/OT (2) Pre-op evaluation Conclusion/Plan: agree the following pre-op evaluation: NSQIP surgical risk calculator has her at 8% risk for serious complication, 0.2% cardiac complication, 0.4% surgical site infection. It is expected that she will be discharged to a rehab facility with a 5.1% readmission rate. Predicted length of stay is 5 days. She has an average chance of functional decline of 87% and an average chance of outcome of needing a mobility aid of 98%. (3) History of hypertension Conclusion/Plan: pt has slight elevated BP, pt had no home BP. add as needed hydralazine. (4) Temporal arteritis Conclusion/Plan: pt has hx of giant cell arteritis, she took 9 mg prednisone daily at home. pt is very concern and request to have continue home Prednisone dosage. Give once slight high dosage of Solu-metro for her recurrent stress situation and fall injury. 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 Now it is hold, will resume as finishing of surgery after discussed with surgeon for bleeding risk. - Current Meds Current Meds: Current Medications Generic Name Dose Route Start Last Admin Trade Name Ronnieq PRN Reason Stop Dose Admin Acetaminophen 650 mg 07/10/19 18:12 07/11/19 00:36 Tylenol PO 650 mg Q4HR PRN Administration Pain 1 to 4 Hydralazine HCl 10 mg 07/11/19 07:41 07/11/19 08:52 Apresoline Inj IVP 10 mg QID PRN Administration Hypertensive Emergency Oxycodone HCl 5 mg 07/10/19 18:12 07/11/19 00:35 Roxicodone PO 5 mg Q4HR PRN Administration Pain 5 to 7 Sodium Chloride 10 ml 07/11/19 01:00 07/11/19 08:44 Normal Saline Flush 0.9% IVP 10 ml 0100,0900,1700 [facility] Administration - Lab Result Fish Bone Diagrams: 07/10/19 17:55 07/10/19 17:55 - Additional Planning My Orders: My Active Orders 07/11/19 07:41 hydrALAZINE INJ [Apresoline Inj] 10 mg IVP QID PRN 07/12/19 08:00 predniSONE [Deltasone] 9 mg PO DAILYWM Subjective - Subjective Patient Reports: Feeling Better Objective Vital Signs: Vital Signs - 24 hr 07/10/19 07/10/19 07/10/19 17:14 18:39 19:00 Temperature 36.4 C L 36.6 C Heart Rate 82 77 Heart Rate [ 97 Monitoring electrodes] Respiratory 18 17 16 Rate Blood Pressure 203/90 H 167/83 H Blood Pressure 163/81 H [Right Brachial artery] O2 Saturation 98 99 97 07/10/19 07/10/19 07/11/19 23:53 23:55 07:49 Temperature 36.7 C 36.7 C 36.7 C Heart Rate 76 Heart Rate [ 76 71 Monitoring electrodes] Respiratory 18 20 14 Rate Blood Pressure Blood Pressure 165/53 H 174/70 H [Right Brachial artery] O2 Saturation 99 98 99 07/11/19 07/11/19 08:52 09:22 Temperature Heart Rate Heart Rate [ Monitoring electrodes] Respiratory Rate Blood Pressure 174/70 H 159/71 H Blood Pressure [Right Brachial artery] O2 Saturation Oxygen O2 Source Room air I&O (Last 24 Hrs): Intake and Output Totals x24h 07/09/19 07/10/19 07/11/19 23:59 23:59 23:59 Intake Total 360 973.3 Output Total 0 650 Balance 360 323.3 General: Alert, Oriented x3, No acute distress HEENT: Atraumatic Neck: Supple Lymphatic: no adenopathy Neuro: Alert, Non Focal, Oriented Times 3 Cardiovascular: Regular rate, Normal S1, Normal S2 Respiratory: Chest non-tender, No respiratory distress, Breath sounds nml Abdomen: Normal bowel sounds, Soft Extremities: No edema, Normal pulses - Results Results: Laboratory Results WBC 8.8 x10^3/uL (4.8-10.8) 07/10/19 17:55 RBC 3.98 10^6/uL (4.20-5.40) L 07/10/19 17:55 Hgb 12.7 g/dL (12.0-16.0) 07/10/19 17:55 Hct 39.5 % (37.0-47.0) 07/10/19 17:55 MCV 99.2 fL (81.0-99.0) H 07/10/19 17:55 MCH 31.9 pg (27.0-31.0) H 07/10/19 17:55 MCHC 32.2 g/dL (32.0-36.0) 07/10/19 17:55 RDW 12.1 % (12.0-15.0) 07/10/19 17:55 Plt Count 275 10^3/uL (130-450) 07/10/19 17:55 MPV 9.0 fL (7.9-10.8) 07/10/19 17:55 Neut # (Auto) 7.0 10^3/uL (1.5-6.6) H 07/10/19 17:55 Lymph # (Auto) 0.9 10^3/uL (1.5-3.5) L 07/10/19 17:55 [place] # (Auto) 0.8 10^3/uL (0.0-1.0) 07/10/19 17:55 Eos # (Auto) 0.0 10^3/uL (0.0-0.7) 07/10/19 17:55 Baso # (Auto) 0.1 10^3/uL (0.0-0.1) 07/10/19 17:55 Absolute Nucleated RBC 0.00 x10^3/uL 07/10/19 17:55 Nucleated RBC % 0.0 /100WBC 07/10/19 17:55 PT 11.8 secs (9.9-12.6) 07/10/19 17:55 INR 1.0 (0.8-1.2) 07/10/19 17:55 Sodium 136 mmol/L (135-145) 07/10/19 17:55 Potassium 4.2 mmol/L (3.5-5.0) 07/10/19 17:55 Chloride 93 mmol/L (101-111) L 07/10/19 17:55 Carbon Dioxide 35 mmol/L (21-32) H 07/10/19 17:55 Anion Gap 8.0 (6-13) 07/10/19 17:55 BUN 26 mg/dL (6-20) H 07/10/19 17:55 Creatinine 0.7 mg/dL (0.4-1.0) 07/10/19 17:55 Estimated GFR (MDRD) 79 (>89) L 07/10/19 17:55 Glucose 106 mg/dL (70-100) H 07/10/19 17:55 Calcium 9.2 mg/dL (8.5-10.3) 07/10/19 17:55 Total Bilirubin 0.5 mg/dL (0.2-1.0) 07/10/19 17:55 AST 20 IU/L (10-42) 07/10/19 17:55 ALT 17 IU/L (10-60) 07/10/19 17:55 Alkaline Phosphatase 49 IU/L (42-121) 07/10/19 17:55 Total Protein 6.4 g/dL (6.7-8.2) L 07/10/19 17:55 Albumin 4.0 g/dL (3.2-5.5) 07/10/19 17:55 Globulin 2.4 g/dL (2.1-4.2) 07/10/19 17:55 Albumin/Globulin Ratio 1.7 (1.0-2.2) 07/10/19 17:55 Lipase 33 U/L (22-51) 07/10/19 17:55 Blood Type A NEGATIVE 07/10/19 17:55 Blood Type Recheck A NEGATIVE 07/10/19 20:43 Antibody Screen NEGATIVE 07/10/19 17:55 - Procedures Procedures: Procedures BLOOD VESSEL BIOPSY (11/21/13) REPLACEMENT OF LEFT LENS WITH SYNTH SUB, PERC APPROACH (05/13/16) REPLACEMENT OF RIGHT LENS WITH SYNTH SUB, PERC APPROACH (06/03/16) Sepsis Event Note (H) - Evaluation Current Stage of Sepsis: Ruled out ABX Reporting Has patient been on IV antibiotics over the past 48 hours?: No Current Medications - Current Medications Current Medications: Active Medications Acetaminophen (Tylenol) 650 mg PO Q4HR PRN PRN Reason: Pain 1 to 4 Last Admin: 07/11/19 00:36 Dose: 650 mg Hydralazine HCl (Apresoline Inj) 10 mg IVP QID PRN PRN Reason: Hypertensive Emergency Last Admin: 07/11/19 08:52 Dose: 10 mg Hydromorphone HCl (Dilaudid Inj Carp) 1 mg IVP Q2HR PRN PRN Reason: Pain 8 to 10 Ondansetron HCl (Zofran Inj) 4 mg IVP Q6HR PRN PRN Reason: Nausea / Vomiting Ondansetron HCl (Zofran Odt) 4 mg TL Q6HR PRN PRN Reason: Nausea / Vomiting Oxycodone HCl (Roxicodone) 5 mg PO Q4HR PRN PRN Reason: Pain 5 to 7 Last Admin: 07/11/19 00:35 Dose: 5 mg Prednisone (Deltasone) [facility] [place] Sodium Chloride (Normal Saline Flush 0.9%) 10 ml IVP PRN PRN PRN Reason: NEEDED PER PROVIDER ORDERS Sodium Chloride (Normal Saline Flush 0.9%) 10 ml IVP 0100,0900,1700 JAMARCUS Last Admin: 07/11/19 08:44 Dose: 10 ml Multivitamin [Multi-Vitamin Daily] 1 each PO DAILY 11/21/13 Prednisone 9 mg PO DAILY 11/21/13 Clopidogrel [Plavix] 75 mg PO DAILY 05/29/15 Ascorbic Acid [Vitamin C] 500 mg PO DAILY 07/10/19 Calcium Carbonate [Calcium] 600 mg PO DAILY 07/10/19 Cholecalciferol (Vitamin D3) [Vitamin D3] 1,000 units PO DAILY 07/10/19
[2019-07-11] MEDS ORDERED: BUPIVACAINE 0.25% PF 30 ML VIAL ONE (14:20)
[2019-07-11] MEDS ORDERED: SODIUM CHLORIDE 0.9% 200 ML IV ONE (14:25)
[2019-07-11] MEDS ORDERED: ENOXAPARIN 40 MG/0.4 ML SYRINGE SUBQ SCH (15:00)
[2019-07-11] MEDS ORDERED: LACTATED RINGERS 1,000 ML IV ONE (15:20)
[2019-07-11] MEDS ORDERED: BUPIVACAINE 0.25% PF 30 ML VIAL SUBQ ONE (15:42)
[2019-07-11] MEDS ORDERED: D5.45NS W/20 MEQ KCL 1,000 ML IV SCH (16:00)
--- NOTE | 2019-07-11 16:05 | OPERATIVE REPORT ---
Operative Report - General Admit Date: 07/10/19 Procedure Date: 07/11/19 Planned Procedure: Short interTan nailing of Right intertrochanteric hip fracture Pre-Op Diagnosis: Closed right hip fracture Procedure Performed: Closed reduction and sort interTan nailing of right hip fracture Post Op Diagnosis: Same - Procedure Note Primary Surgeon: Yamilex Lopez MD Anesthesia Provider: Radha Neumann CRNA Anesthesia Technique: General LMA IV Fluids (mL): 800 Estimated Blood Loss (mL): 100 Complications: None
[2019-07-11] MEDS ORDERED: DOCUSATE SODIUM 100 MG CAPSULE PO PRN (16:06)
[2019-07-11] MEDS ORDERED: SODIUM CHLORIDE FLUSH 0.9% 10 ML SYRINGE IVP PRN (16:06)
[2019-07-11] MEDS ORDERED: ONDANSETRON 4 MG/2 ML VIAL IVP PRN (16:06)
[2019-07-11] MEDS ORDERED: SENNA 8.6 MG TABLET PO PRN (16:06)
[2019-07-11] MEDS ORDERED: PROCHLORPERAZINE 10 MG/2 ML VIAL IVP PRN (16:06)
[2019-07-11] MEDS ORDERED: MORPHINE 2 MG/ML CARPUJECT IVP PRN (16:06)
--- NOTE | 2019-07-11 16:17 | XRAY Report ---
Reason: fx rt rip Procedure Date: 07/11/2019 Accession Number: [id number] / [id number] Procedure: [place] - OR C-Arm Procedure CPT Code: Final Report FULL RESULT: EXAM: FLUOROSCOPIC GUIDANCE EXAM DATE: 07/11/2019 03:57 PM. CLINICAL HISTORY: Fracture right hip. COMPARISON: None. FINDINGS: 5 images demonstrate placement of an intramedullary shantell with distal interlocking screw and proximal partially-threaded cannulated compression screw. IMPRESSION: Fluoroscopic guidance provided for right hip fracture fixation. Total fluoroscopy time: Reported as 0.6 minutes. Number of images: 5. RADIA
--- NOTE | 2019-07-11 16:54 | OPERATIVE REPORT ---
DATE OF SERVICE: 07/11/2019 Physician: Fernando Lopez MD PREOPERATIVE DIAGNOSIS: Closed right intertrochanteric hip fracture. POSTOPERATIVE DIAGNOSIS: Closed right intertrochanteric hip fracture. PROCEDURE PERFORMED: Closed reduction and short Intertan nailing of right hip fracture. SURGEON: Fernando Lopez MD ANESTHESIA: General. DESCRIPTION OF PROCEDURE: Patient was taken to the operating room on the early afternoon, 07/11/2019. She was placed under a general anesthetic without any complications. She was then positioned supine on the fracture table. Her left unfractured leg then had the hip widely flexed and abducted and held with a well leg wiley. The right fractured extremity was then placed into axial traction with the leg internally rotated about 20 degrees. We then prepped and draped the lateral aspect of the right hip in the usual fashion for our procedure. Making an oblique skin incision just proximal tip of the greater trochanter, we dissected through the skin between the muscle of the tensor fascia dread and we were able to palpate the tip of the greater trochanter. This is where we placed the threaded-tip of our guidewire. Fluoroscopic view confirmed its location. We then drove the threaded-tip guidewire through the greater trochanter into the proximal femur down past the level of the lesser trochanter. Fluoroscopic view in AP and lateral projection showed proper depth and position of our guidewire in both views. We then used the 60 mm channel reamer to ream the proximal femur using our guide pin as a guide. Having prepared the proximal femur we then removed the reamer and guide pin. This was then followed by the selected short Intertan nail comprised of a 10 mm x 18 cm x 125 degree angle. This nail was placed on the insertion guide/alignment guide and we were easily able to position this shantell down the proximal femur. This was advanced until the oblique proximal hole in the nail was in alignment with the central axis of the femoral neck and head. Once this was then positioned, we then placed the oval drill sleeve through the distal end of our alignment jig and advancing it through a small skin incision up against the proximal lateral femoral cortex. Our semilunar drill sleeve was then placed into our drill guide. We then used the threaded-tip guidewire and inserted this pin through the pin guide through the alignment jig and up through the proximal femur, femoral neck and femoral head. This was advanced until the tip of the guide pin was within about 3 mm of subchondral bone. Fluoroscopic view in AP and lateral projection confirmed satisfactory position and depth of our guide pin in both views. We then used the direct measuring guide and determined a 110 mm length subtrochanteric hip lag screw be utilized. Removing our semilunar pin guide, we then followed up with a cannulated reamer to ream the proximal femur, femoral neck and femoral head up to the tip of our guide pin. Once we removed the reamer. We then followed with the selected sub intertrochanteric hip lag screw: 11 x 110 mm in length. This was inserted manually until the threaded tip of our hip lag screw was within about 3 mm of subchondral bone in both AP and lateral projections. Satisfied with this, as well as the reduction of our fracture, we then removed the insertion apparatus from our hip lag screw. The hinge screwdriver was then inserted in the proximal end of the nail and we tightened the set screw snugly and then backed it off 90 degrees. Next, our attention was directed for placing the distal locking screw in place. The concentric silver and gold sleeve was then inserted into the static hole in the distal end of our alignment jig. This was advanced through a small skin incision to the lateral proximal femoral cortex. We then used 4.0 mm drill to drill the proximal medial femoral shaft cortices. We then used the direct measurement was from our drill and determined a 37 x 5 mm length distal locking screw be utilized. The selected screw was then inserted manually through our gold sleeve drill sleeves until we got bicortical fixation of the screw. Fluoroscopic view showed the screw to be within the distal hole of our nail and that the bicortical screw was in proper position in AP and lateral projection. We then obtained permanent views in AP and lateral projection of the nail distally and proximally showing again good location of our hardware as well as good reduction of our fracture. We then removed the apparatus from the nail. We irrigated the wounds thoroughly with saline, closed the wound in layers using [id number] stitch of 0 Vicryl to approximate the fascia dread incision proximally, followed by buried simple stitches of 2-0 Vicryl to approximate the subcutaneous tissue and the proximal 2 wounds. Finally, skin cha used to approximate all the skin edges of the wounds. We injected a total of 20 mL of 0.25% Marcaine without epinephrine for incisional anesthesia in all 3 incisions. We then dressed the wounds. Patient transferred off the fracture table and taken to the recovery room in satisfactory condition. ESTIMATED BLOOD LOSS: 100 mL REPLACEMENT: 700 mL crystalloid. INTRAOPERATIVE COMPLICATIONS: None. PLAN: Patient may be weightbearing as tolerated in that extremity beginning on postoperative day 1. TD: 07/11/2019 16:27 [facility]ENTERDonna
[2019-07-11] MEDS ORDERED: ENALAPRILAT 1.25 MG/ML VIAL IVP PRN (17:26)
[2019-07-11] MEDS: amLODIPine 5 MG TABLET PO SCH (18:54)
[2019-07-11] MEDS ORDERED: CARBOXYMETHYLCELLULOSE OPHTH DROPS EACHEYE PRN (21:01)
[2019-07-11 22:12] LABS: HGB - HEMOGLOBIN 9.7 g/dL (12.0-16.0)
[2019-07-11] MEDS: ceFAZolin 2 GM in SODIUM CHLORIDE 0.9% 100ML 100 ML IV SCH (22:26)
[2019-07-12] MEDS: SODIUM CHLORIDE FLUSH 0.9% 10 ML SYRINGE IVP SCH ×3 (00:53→17:52)
[2019-07-12] MEDS: oxyCODONE 5 MG TABLET PO PRN ×4 (04:32→20:09)
[2019-07-12] MEDS: ACETAMINOPHEN 325 MG TABLET PO PRN ×4 (04:38→20:09)
[2019-07-12 04:57] LABS: BASOPHILS % (AUTO) 0.2 %; HGB - HEMOGLOBIN 9.3 g/dL (12.0-16.0); LYMPHOCYTES # (AUTO) 0.6 10^3/uL (1.5-3.5); LYMPHOCYTES % (AUTO) 5.5 %; MEAN CORPUSCULAR HEMOGLOBIN 31.8 pg (27.0-31.0); MEAN CORPUSCULAR HGB CONC 32.1 g/dL (32.0-36.0); MEAN CORPUSCULAR VOLUME 99.3 fL (81.0-99.0); MEAN PLATELET VOLUME 9.3 fL (7.9-10.8); MONOCYTES # (AUTO) 1.2 10^3/uL (0.0-1.0); MONOCYTES % (AUTO) 10.9 %; NEUTROPHILS # (AUTO) 9.3 10^3/uL (1.5-6.6); NEUTROPHILS % (AUTO) 82.9 %; PLT - PLATELET COUNT 205 10^3/uL (130-450); RED BLOOD COUNT 2.92 10^6/uL (4.20-5.40); RED CELL DISTRIBUTION WIDTH 12.5 % (12.0-15.0); WHITE BLOOD COUNT 11.2 x10^3/uL (4.8-10.8)
[2019-07-12 05:46] LABS: CALCIUM 8.6 mg/dL (8.5-10.3); CREATININE 0.7 mg/dL (0.4-1.0)
[2019-07-12] MEDS: ceFAZolin 2 GM in SODIUM CHLORIDE 0.9% 100ML 100 ML IV SCH (06:37)
[2019-07-12 08:22] LABS: ABSOLUTE RETICS # AUTO 0.038 10^6/uL (0.020-0.110); RED BLOOD COUNT 2.95 10^6/uL (4.20-5.40)
[2019-07-12 08:35] LABS: FERRITIN 84.6 ng/mL (11.0-306.8)
[2019-07-12 08:47] LABS: % IRON SATURATION 15 % (20-50); IRON 41 ug/dL (28-170); TOTAL IRON BINDING CAPACITY 270 ug/dL (250-450); TRANSFERRIN 193 mg/dL (192-382)
--- NOTE | 2019-07-12 08:48 | PHARMACY PROGRESS NOTE ---
- Best Possible Medication History Admit Date and Time: 07/10/191811 Processed by: Nursing Medication History completed: Yes As the person ultimately responsible for medication therapy, providers are able to order a medication from an existing home medication list in [facility] via the "Reconcile Routine" prior to Confirmation of that medication by call center support representative. Such practice is discouraged except when the physician, in their clinical judgment, deems that a medical need exists for a medication without regard to previous use.
[2019-07-12] MEDS: predniSONE 1 MG TABLET PO SCH (09:09)
[2019-07-12] MEDS: CHOLECALCIFEROL 1,000 UNIT TABLET PO SCH (09:12)
[2019-07-12] MEDS: amLODIPine 5 MG TABLET PO SCH (09:13)
[2019-07-12] MEDS: MULTIVITAMIN TABLET PO SCH (09:14)
[2019-07-12] MEDS: CLOPIDOGREL 75 MG TABLET PO SCH (09:14)
[2019-07-12] MEDS: CALCIUM CARB (OYSTER SHELL) 500 MG TABLET PO SCH (09:14)
[2019-07-12] MEDS: ENOXAPARIN 30 MG/0.3 ML SYRINGE SUBQ SCH (09:14)
[2019-07-12 10:09] LABS: HGB - HEMOGLOBIN 9.4 g/dL (12.0-16.0)
--- NOTE | 2019-07-12 13:16 | PROVIDER PROGRESS NOTE ---
Assessment/Plan - Problem List (1) Intertrochanteric fracture of right femur Qualifiers: Encounter type: initial encounter Fracture type: closed Fracture alignmen t: displaced Qualified Code(s): S72.141A - Displaced intertrochanteric fracture of right femur, initial encounter for closed fracture Assessment/Plan: 07/12 pt is doing well s/p right hip repair, her pain is controlled. pt refused to have DVT prophylaxis and Plavix, which she took at home for his previous stroke. continue PT/OT, pain control. plan to have hip repair today by orthopedics surgeon, will followup continue pain control DVT prophylaxis will followup PT/OT (2) Pre-op evaluation Conclusion/Plan: agree the following pre-op evaluation: [facility] surgical risk calculator has her at 8% risk for serious complication, 0.2% cardiac complication, 0.4% surgical site infection. It is expected that she will be discharged to a rehab facility with a 5.1% readmission rate. Predicted length of stay is 5 days. She has an average chance of functional decline of 87% and an average chance of outcome of needing a mobility aid of 98%. (3) History of hypertension Conclusion/Plan: 07/12 stable pt has slight elevated BP, pt had no home BP. add as needed hydralazine. (4) Temporal arteritis Conclusion/Plan: pt has hx of giant cell arteritis, she took 9 mg prednisone daily at home. pt is very concern and request to have continue home Prednisone dosage. Give once lower dosage of Solu-metro for her recurrent stress situation and fall injury. 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 pt refused to take Plavix At home she takes Plavix. Now it is hold, will resume as finishing of surgery after discussed with surgeon for bleeding risk. - Current Meds Current Meds: Current Medications Generic Name Dose Route Start Last Admin Trade Name Freq PRN Reason Stop Dose Admin Acetaminophen 650 - 975 mg 07/11/19 16:06 07/12/19 10:35 Tylenol PO 650 mg Q4HR PRN Administration PAIN Amlodipine Besylate 5 mg 07/11/19 17:50 07/12/19 09:13 Norvasc PO Not Given DAILY JAMARCUS Calcium Carbonate/Glycine 500 mg 07/12/19 09:00 07/12/19 09:14 Oysco-500 PO Not Given DAILY [facility] Cholecalciferol 1,000 unit 07/12/19 09:00 07/12/19 09:12 Vitamin D3 PO Not Given DAILY [facility] Clopidogrel Bisulfate 75 mg 07/12/19 09:00 07/12/19 09:14 Plavix PO Not Given DAILY [facility] Enoxaparin Sodium 30 mg 07/12/19 09:00 07/12/19 09:14 Lovenox SUBQ Not Given DAILY [facility] Hydralazine HCl 10 mg 07/11/19 07:41 07/11/19 17:42 Apresoline Inj IVP 10 mg QID PRN Administration Hypertensive Emergency Multivitamins 1 tab 07/12/19 08:00 07/12/19 09:14 Theragran PO Not Given DAILYWM JAMARCUS Oxycodone HCl 5 mg 07/11/19 16:06 07/12/19 10:35 Roxicodone PO 5 mg Q4HR PRN Administration PAIN Prednisone 9 mg 07/12/19 08:00 07/12/19 09:09 Deltasone PO 9 mg DAILYWM JAMARCUS Administration Senna 17.2 mg 07/11/19 16:06 07/12/19 09:13 Senokot PO 17.2 mg Q12H PRN Administration Constipation Sodium Chloride 10 ml 07/11/19 17:00 07/12/19 09:15 Normal Saline Flush 0.9% IVP Not Given 0100,0900,1700 JAMARCUS - Lab Result Fish Bone Diagrams: 07/12/19 10:06 07/12/19 04:30 - Additional Planning My Orders: My Active Orders 07/11/19 17:26 Enalaprilat [Vasotec Inj] 1.25 mg IVP Q6HR PRN 07/11/19 17:50 amLODIPine [Norvasc] 5 mg PO DAILY 07/12/19 OCCULT BLOOD IN PAT. SINGLE [RAPID] Urgent 07/12/19 08:00 Multivitamin [Theragran] 1 tab PO DAILYWM predniSONE [Deltasone] 9 mg PO DAILYWM 07/12/19 09:00 Calcium Carb (Oyster Shell) [Oysco-500] 500 mg PO DAILY Cholecalciferol [Vitamin D3] 1,000 unit PO DAILY Clopidogrel [Plavix] 75 mg PO DAILY 07/12/19 19:00 H&H [HEMOGLOBIN AND HEMATOCRIT] [HEME] Timed 07/13/19 05:00 BMP - BASIC METABOLIC PANEL [CHEM] DAILYLAB CBC - COMP BLD CT W/AUTO DIFF [HEME] DAILYLAB 07/14/19 05:00 BMP - BASIC METABOLIC PANEL [CHEM] DAILYLAB CBC - COMP BLD CT W/AUTO DIFF [HEME] DAILYLAB 07/15/19 05:00 BMP - BASIC METABOLIC PANEL [CHEM] DAILYLAB CBC - COMP BLD CT W/AUTO DIFF [HEME] DAILYLAB 07/16/19 05:00 CBC - COMP BLD CT W/AUTO DIFF [HEME] DAILYLAB Subjective - Subjective Patient Reports: Other (pt refused to have IV access port, refused to have Lab test, refused to take her lovenex and Plavix. she apprecaited very much our sevice to her, at the same time she complaint of our staff, and nurse. Margie talked pt's son, he said his mother had mood disorder since she was on steroid for her giant cell arteritis. her son state his mother can be treated as medical needed in the hospital. he also recommend we try to talk with his father. he think his father is alert and oriented.) Objective Vital Signs: Vital Signs - 24 hr 07/11/19 07/11/19 07/11/19 16:03 16:04 16:05 Temperature 36.4 C L 36.4 C L 36.4 C L Heart Rate 85 84 88 Heart Rate [ Monitoring electrodes] Respiratory 15 15 19 Rate Blood Pressure 208/96 H 207/95 H 207/95 H Blood Pressure [Left Brachial artery] Blood Pressure [Right Brachial artery] O2 Saturation 100 100 100 07/11/19 07/11/19 07/11/19 16:10 16:15 16:20 Temperature 36.4 C L 36.5 C 36.6 C Heart Rate 80 73 72 Heart Rate [ Monitoring electrodes] Respiratory 19 12 13 Rate Blood Pressure 198/76 H 193/80 H 194/87 H Blood Pressure [Left Brachial artery] Blood Pressure [Right Brachial artery] O2 Saturation 100 100 100 07/11/19 07/11/19 07/11/19 16:25 16:30 16:35 Temperature 36.6 C 36.7 C 36.8 C Heart Rate 72 68 74 Heart Rate [ Monitoring electrodes] Respiratory 12 12 14 Rate Blood Pressure 188/97 H 184/79 H 173/80 H Blood Pressure [Left Brachial artery] Blood Pressure [Right Brachial artery] O2 Saturation 100 100 98 07/11/19 07/11/19 07/11/19 16:36 17:00 17:35 Temperature 37.1 C Heart Rate Heart Rate [ 74 80 Monitoring electrodes] Respiratory 18 18 Rate Blood Pressure Blood Pressure [Left Brachial artery] Blood Pressure 180/80 H 164/104 H 177/79 H [Right Brachial artery] O2 Saturation 100 96 07/11/19 07/11/19 07/11/19 17:42 17:58 18:00 Temperature Heart Rate Heart Rate [ 89 82 Monitoring electrodes] Respiratory Rate Blood Pressure 177/79 H Blood Pressure [Left Brachial artery] Blood Pressure 148/60 H 148/60 H [Right Brachial artery] O2 Saturation 07/11/19 07/11/19 07/11/19 18:15 18:30 18:33 Temperature Heart Rate Heart Rate [ 82 83 Monitoring electrodes] Respiratory Rate Blood Pressure 147/64 H Blood Pressure [Left Brachial artery] Blood Pressure 147/64 H 150/63 H [Right Brachial artery] O2 Saturation 07/11/19 07/11/19 07/12/19 20:48 23:35 08:00 Temperature 36.8 C 36.6 C Heart Rate Heart Rate [ 97 86 74 Monitoring electrodes] Respiratory 18 16 16 Rate Blood Pressure Blood Pressure 148/60 H 157/69 H [Left Brachial artery] Blood Pressure 146/98 H [Right Brachial artery] O2 Saturation 98 99 97 Oxygen O2 Source Room air I&O (Last 24 Hrs): Intake and Output Totals x24h 07/10/19 07/11/19 07/12/19 23:59 23:59 23:59 Intake Total 360 2849.97 1620 Output Total 0 2250 1150 Balance 360 599.97 470 General: Alert, Mild distress HEENT: Atraumatic Neck: Supple Lymphatic: no adenopathy Neuro: Alert, Non Focal Cardiovascular: Regular rate, Normal S1, Normal S2 Respiratory: Chest non-tender, No respiratory distress, Breath sounds nml Abdomen: Normal bowel sounds, Soft Extremities: Normal pulses - Results Results: Laboratory Results WBC 11.2 x10^3/uL (4.8-10.8) H 07/12/19 04:30 RBC 2.95 10^6/uL (4.20-5.40) L 07/12/19 04:30 Hgb 9.4 g/dL (12.0-16.0) L 07/12/19 10:06 Hct 30.6 % (37.0-47.0) L 07/12/19 10:06 MCV 99.3 fL (81.0-99.0) H 07/12/19 04:30 MCH 31.8 pg (27.0-31.0) H 07/12/19 04:30 MCHC 32.1 g/dL (32.0-36.0) 07/12/19 04:30 RDW 12.5 % (12.0-15.0) 07/12/19 04:30 Plt Count 205 10^3/uL (130-450) 07/12/19 04:30 MPV 9.3 fL (7.9-10.8) 07/12/19 04:30 Reticulocyte % (Auto) 1.29 % (0.5-2.3) 07/12/19 04:30 Neut # (Auto) 9.3 10^3/uL (1.5-6.6) H 07/12/19 04:30 Lymph # (Auto) 0.6 10^3/uL (1.5-3.5) L 07/12/19 04:30 [place] # (Auto) 1.2 10^3/uL (0.0-1.0) H 07/12/19 04:30 Eos # (Auto) 0.0 10^3/uL (0.0-0.7) 07/12/19 04:30 Baso # (Auto) 0.0 10^3/uL (0.0-0.1) 07/12/19 04:30 Absolute Nucleated RBC 0.00 x10^3/uL 07/12/19 04:30 Nucleated RBC % 0.0 /100WBC 07/12/19 04:30 Absolute Retic 0.038 10^6/uL (0.020-0.110) 07/12/19 04:30 PT 11.8 secs (9.9-12.6) 07/10/19 17:55 INR 1.0 (0.8-1.2) 07/10/19 17:55 Sodium 139 mmol/L (135-145) 07/12/19 04:30 Potassium 4.2 mmol/L (3.5-5.0) 07/12/19 04:30 Chloride 101 mmol/L (101-111) 07/12/19 04:30 Carbon Dioxide 30 mmol/L (21-32) 07/12/19 04:30 Anion Gap 8.0 (6-13) 07/12/19 04:30 BUN 13 mg/dL (6-20) 07/12/19 04:30 Creatinine 0.7 mg/dL (0.4-1.0) 07/12/19 04:30 Estimated GFR (MDRD) 79 (>89) L 07/12/19 04:30 Glucose 115 mg/dL (70-100) H 07/12/19 04:30 Calcium 8.6 mg/dL (8.5-10.3) 07/12/19 04:30 Magnesium 2.0 mg/dL (1.7-2.8) 07/12/19 04:30 Iron 41 ug/dL (28-170) 07/12/19 04:30 TIBC 270 ug/dL (250-450) 07/12/19 04:30 % Saturation 15 % (20-50) L 07/12/19 04:30 Transferrin 193 mg/dL (192-382) 07/12/19 04:30 Ferritin 84.6 ng/mL (11.0-306.8) 07/12/19 04:30 Total Bilirubin 0.5 mg/dL (0.2-1.0) 07/10/19 17:55 AST 20 IU/L (10-42) 07/10/19 17:55 ALT 17 IU/L (10-60) 07/10/19 17:55 Alkaline Phosphatase 49 IU/L (42-121) 07/10/19 17:55 Lactate Dehydrogenase 116 IU/L (91-225) 07/12/19 10:06 Total Protein 6.4 g/dL (6.7-8.2) L 07/10/19 17:55 Albumin 4.0 g/dL (3.2-5.5) 07/10/19 17:55 Globulin 2.4 g/dL (2.1-4.2) 07/10/19 17:55 Albumin/Globulin Ratio 1.7 (1.0-2.2) 07/10/19 17:55 Lipase 33 U/L (22-51) 07/10/19 17:55 Vitamin B12 1367 pg/mL (180-914) H 07/12/19 04:30 Blood Type A NEGATIVE 07/10/19 17:55 Blood Type Recheck A NEGATIVE 07/10/19 20:43 Antibody Screen NEGATIVE 07/10/19 17:55 - Procedures Procedures: Procedures BLOOD VESSEL BIOPSY (11/21/13) REPLACEMENT OF LEFT LENS WITH SYNTH SUB, PERC APPROACH (05/13/16) REPLACEMENT OF RIGHT LENS WITH SYNTH SUB, PERC APPROACH (06/03/16) Sepsis Event Note (H) - Evaluation Current Stage of Sepsis: Ruled out ABX Reporting Has patient been on IV antibiotics over the past 48 hours?: No Current Medications - Current Medications Current Medications: Active Medications Acetaminophen (Tylenol) 650 - 975 mg PO Q4HR PRN PRN Reason: PAIN Last Admin: 07/12/19 10:35 Dose: 650 mg Amlodipine Besylate (Norvasc) 5 mg PO DAILY [facility] Last Admin: 07/12/19 09:13 Dose: Not Given Calcium Carbonate/Glycine (Oysco-500) 500 mg PO DAILY [facility] Last Admin: 07/12/19 09:14 Dose: Not Given Carboxymethylcellulose (Refresh 1% Ophth Drops) 1 drops EACHEYE Q12H PRN PRN Reason: Dry Eye Cholecalciferol (Vitamin D3) 1,000 unit PO DAILY [facility] Last Admin: 07/12/19 09:12 Dose: Not Given Clopidogrel Bisulfate (Plavix) 75 mg PO DAILY [facility] Last Admin: 07/12/19 09:14 Dose: Not Given Docusate Sodium (Colace 100mg Capsule) 100 mg PO BID PRN PRN Reason: Constipation Enalaprilat (Vasotec Inj) 1.25 mg IVP Q6HR PRN PRN Reason: Hypertensive Emergency Enoxaparin Sodium (Lovenox) 30 mg SUBQ DAILY [facility] Last Admin: 07/12/19 09:14 Dose: Not Given Hydralazine HCl (Apresoline Inj) 10 mg IVP QID PRN PRN Reason: Hypertensive Emergency Last Admin: 07/11/19 17:42 Dose: 10 mg Morphine Sulfate (Morphine (Carpuject)) 2 mg IVP Q2HR PRN PRN Reason: PAIN Multivitamins (Theragran) 1 tab PO DAILYWM [facility] Last Admin: 07/12/19 09:14 Dose: Not Given Ondansetron HCl (Zofran Inj) 4 mg IVP Q6HR PRN PRN Reason: Nausea / Vomiting Oxycodone HCl (Roxicodone) 5 mg PO Q4HR PRN PRN Reason: PAIN Last Admin: 07/12/19 10:35 Dose: 5 mg Prednisone (Deltasone) 9 mg PO DAILYWM [facility] Last Admin: 07/12/19 09:09 Dose: 9 mg Prochlorperazine Edisylate (Compazine Inj) 10 mg IVP Q6HR PRN PRN Reason: Nausea / Vomiting Senna (Senokot) 17.2 mg PO Q12H PRN PRN Reason: Constipation Last Admin: 07/12/19 09:13 Dose: 17.2 mg Sodium Chloride (Normal Saline Flush 0.9%) 10 ml IVP 0100,0900,1700 [facility] Last Admin: 07/12/19 09:15 Dose: Not Given Sodium Chloride (Normal Saline Flush 0.9%) 10 ml IVP PRN PRN PRN Reason: NEEDED PER PROVIDER ORDERS Multivitamin [Multi-Vitamin Daily] 1 each PO DAILY 11/21/13 Prednisone 9 mg PO DAILY 11/21/13 Clopidogrel [Plavix] 75 mg PO DAILY 05/29/15 Ascorbic Acid [Vitamin C] 500 mg PO DAILY 07/10/19 Calcium Carbonate [Calcium] 600 mg PO DAILY 07/10/19 Cholecalciferol (Vitamin D3) [Vitamin D3] 1,000 units PO DAILY 07/10/19
[2019-07-12] MEDS ORDERED: PROPOFOL 200 MG/20 ML VIAL IVP ONE (14:45)
[2019-07-12] MEDS ORDERED: DEXAMETHASONE 4 MG/ML VIAL IVP ONE (14:45)
[2019-07-12] MEDS ORDERED: NEOSTIGMINE 1 MG/1 ML 10 ML MDV IVP ONE (14:45)
[2019-07-12] MEDS ORDERED: LABETALOL 100 MG TABLET PO ONE (14:45)
--- NOTE | 2019-07-12 15:04 | PROVIDER PROGRESS NOTE ---
Subjective - Prog Note Date Prog Note Date: 07/12/19 Prog Note Time: 15:03 - Subjective Pt reports feeling: Improved Objective - Vital Signs/Intake & Output Vital Signs: Vital Signs x48h Temp Pulse Pulse Pulse Resp BP BP 07/12/19 11:15 91 86 175/67 H 07/12/19 08:00 36.6 C 74 16 157/69 H BP Pulse Ox 07/12/19 11:15 159/68 H 07/12/19 08:00 97 Intake & Output: Intake & Output 07/09/19 07/10/19 07/11/19 07/12/19 23:59 23:59 23:59 23:59 Intake Total 360 2849.97 1620 Output Total 0 2250 1150 Balance 360 599.97 470 - Lab Results Fish Bones: 07/12/19 10:06 07/12/19 04:30 Other Labs: Lab Results x24hrs 07/12/19 07/12/19 07/12/19 Range/Units 10:06 10:06 04:30 WBC (4.8-10.8) x10^3/uL RBC (4.20-5.40) 10^6/uL Hgb 9.4 L (12.0-16.0) g/dL Hct 30.6 L (37.0-47.0) % MCV (81.0-99.0) fL MCH (27.0-31.0) pg MCHC (32.0-36.0) g/dL RDW (12.0-15.0) % Plt Count (130-450) 10^3/uL MPV (7.9-10.8) fL Reticulocyte % (Auto) (0.5-2.3) % Neut # (Auto) (1.5-6.6) 10^3/uL Lymph # (Auto) (1.5-3.5) 10^3/uL [place] # (Auto) (0.0-1.0) 10^3/uL Eos # (Auto) (0.0-0.7) 10^3/uL Baso # (Auto) (0.0-0.1) 10^3/uL Absolute Nucleated RBC x10^3/uL Nucleated RBC % /100WBC Absolute Retic (0.020-0.110) 10^6/uL Sodium (135-145) mmol/L Potassium (3.5-5.0) mmol/L Chloride (101-111) mmol/L Carbon Dioxide (21-32) mmol/L Anion Gap (6-13) BUN (6-20) mg/dL Creatinine (0.4-1.0) mg/dL Estimated GFR (MDRD) (>89) Glucose (70-100) mg/dL Calcium (8.5-10.3) mg/dL Magnesium (1.7-2.8) mg/dL Iron (28-170) ug/dL TIBC (250-450) ug/dL % Saturation (20-50) % Transferrin (192-382) mg/dL Ferritin 84.6 (11.0-306.8) ng/mL Lactate Dehydrogenase 116 (91-225) IU/L Vitamin B12 1367 H (180-914) pg/mL 07/12/19 07/12/19 07/12/19 Range/Units 04:30 04:30 04:30 WBC (4.8-10.8) x10^3/uL RBC 2.95 L (4.20-5.40) 10^6/uL Hgb (12.0-16.0) g/dL Hct (37.0-47.0) % MCV (81.0-99.0) fL MCH (27.0-31.0) pg MCHC (32.0-36.0) g/dL RDW (12.0-15.0) % Plt Count (130-450) 10^3/uL MPV (7.9-10.8) fL Reticulocyte % (Auto) 1.29 (0.5-2.3) % Neut # (Auto) (1.5-6.6) 10^3/uL Lymph # (Auto) (1.5-3.5) 10^3/uL [place] # (Auto) (0.0-1.0) 10^3/uL Eos # (Auto) (0.0-0.7) 10^3/uL Baso # (Auto) (0.0-0.1) 10^3/uL Absolute Nucleated RBC x10^3/uL Nucleated RBC % /100WBC Absolute Retic 0.038 (0.020-0.110) 10^6/uL Sodium 139 (135-145) mmol/L Potassium 4.2 (3.5-5.0) mmol/L Chloride 101 (101-111) mmol/L Carbon Dioxide 30 (21-32) mmol/L Anion Gap 8.0 (6-13) BUN 13 (6-20) mg/dL Creatinine 0.7 (0.4-1.0) mg/dL Estimated GFR (MDRD) 79 L (>89) Glucose 115 H (70-100) mg/dL Calcium 8.6 (8.5-10.3) mg/dL Magnesium 2.0 (1.7-2.8) mg/dL Iron 41 (28-170) ug/dL TIBC 270 (250-450) ug/dL % Saturation 15 L (20-50) % Transferrin 193 (192-382) mg/dL Ferritin (11.0-306.8) ng/mL Lactate Dehydrogenase (91-225) IU/L Vitamin B12 (180-914) pg/mL 07/12/19 07/11/19 Range/Units 04:30 22:03 WBC 11.2 H (4.8-10.8) x10^3/uL RBC 2.92 L (4.20-5.40) 10^6/uL Hgb 9.3 L 9.7 L (12.0-16.0) g/dL Hct 29.0 L 30.6 L (37.0-47.0) % MCV 99.3 H (81.0-99.0) fL MCH 31.8 H (27.0-31.0) pg MCHC 32.1 (32.0-36.0) g/dL RDW 12.5 (12.0-15.0) % Plt Count 205 (130-450) 10^3/uL MPV 9.3 (7.9-10.8) fL Reticulocyte % (Auto) (0.5-2.3) % Neut # (Auto) 9.3 H (1.5-6.6) 10^3/uL Lymph # (Auto) 0.6 L (1.5-3.5) 10^3/uL [place] # (Auto) 1.2 H (0.0-1.0) 10^3/uL Eos # (Auto) 0.0 (0.0-0.7) 10^3/uL Baso # (Auto) 0.0 (0.0-0.1) 10^3/uL Absolute Nucleated RBC 0.00 x10^3/uL Nucleated RBC % 0.0 /100WBC Absolute Retic (0.020-0.110) 10^6/uL Sodium (135-145) mmol/L Potassium (3.5-5.0) mmol/L Chloride (101-111) mmol/L Carbon Dioxide (21-32) mmol/L Anion Gap (6-13) BUN (6-20) mg/dL Creatinine (0.4-1.0) mg/dL Estimated GFR (MDRD) (>89) Glucose (70-100) mg/dL Calcium (8.5-10.3) mg/dL Magnesium (1.7-2.8) mg/dL Iron (28-170) ug/dL TIBC (250-450) ug/dL % Saturation (20-50) % Transferrin (192-382) mg/dL Ferritin (11.0-306.8) ng/mL Lactate Dehydrogenase (91-225) IU/L Vitamin B12 (180-914) pg/mL - Other Results/Comments Other Results/Comments: EXAM: Sitting up in bed. Moves toes well. Sensation intact. Sepsis Event Note (H) - Evaluation Current Stage of Sepsis: Ruled out Assessment/Plan - Problem List (1) Intertrochanteric fracture of right femur Impression: Satis post op PLAN: Activities as tolerated. Qualifiers: Encounter type: initial encounter Fracture type: closed Fracture alignment: displaced Qualified Code(s): S72.141A - Displaced intertrochanteric fracture of right femur, initial encounter for closed fracture
[2019-07-12 19:19] LABS: HGB - HEMOGLOBIN 9.1 g/dL (12.0-16.0)
[2019-07-13] MEDS: ACETAMINOPHEN 325 MG TABLET PO PRN ×4 (00:01→12:40)
[2019-07-13] MEDS: oxyCODONE 5 MG TABLET PO PRN ×4 (00:02→12:39)
[2019-07-13] MEDS: SODIUM CHLORIDE FLUSH 0.9% 10 ML SYRINGE IVP SCH ×2 (01:12→08:27)
[2019-07-13 08:14] VITALS: BP 152/65
[2019-07-13] MEDS: amLODIPine 5 MG TABLET PO SCH (08:21)
[2019-07-13] MEDS: predniSONE 1 MG TABLET PO SCH (08:21)
[2019-07-13] MEDS: CHOLECALCIFEROL 1,000 UNIT TABLET PO SCH (08:24)
[2019-07-13] MEDS: CLOPIDOGREL 75 MG TABLET PO SCH (08:26)
[2019-07-13] MEDS: MULTIVITAMIN TABLET PO SCH (08:26)
[2019-07-13] MEDS: CALCIUM CARB (OYSTER SHELL) 500 MG TABLET PO SCH (08:26)
[2019-07-13] MEDS: ENOXAPARIN 30 MG/0.3 ML SYRINGE SUBQ SCH (08:27)
[2019-07-13] MEDS ORDERED: DOCUSATE SODIUM 250 MG CAPSULE PO SCH (09:00)
[2019-07-13] MEDS ORDERED: SENNA 8.6 MG TABLET PO SCH (09:00)
--- NOTE | 2019-07-13 12:29 | Discharge Plan ---
Discharge Plan Problem Reviewed?: Yes Disposition: Home, Self Care Condition: Stable Prescriptions: oxyCODONE [Roxicodone] 5 mg PO Q4HR PRN #30 tablet PRN Reason: Pain Acetaminophen [Tylenol] 650 mg PO Q6HR PRN #30 tablet PRN Reason: Pain Diet: Regular Activity Restrictions: Activity as Tolerated Shower Restrictions: No (fall precaution, caregiver closely monitor) Assistance Devices: Walker Instruction Topics: Oxycodone tablets or capsules, Acetaminophen chewable tablets Health Concerns: status post hip repair Plan of Treatment: you really want to go home today. you walked with walker and with PT on the whole medical floor. pt is prescribed a walker and pain medication. advise you followup orthopedics office in one to two weeks or as you needed for the followup appointment, and you may take your home medications as the scheduled. Please also followup PT's instruction safely walk. Care Goals: recovery from the injury Assessment: discussed with you about the care plan, you understood it. Additional Instructions or Follow Up instructions: you may followup your PCP in one week, and followup orthopedics office in one to two weeks or as you needed. Should your symptoms return or worsen, you may p resent ER or call 911 for help. No Smoking: If you smoke, Please STOP! Call for help. Follow-up with: Gilbert Veloz DO [Primary Care Provider] -
--- NOTE | 2019-07-13 12:48 | DISCHARGE SUMMARY ---
"Discharge Summary Admit Date: 07/10/19 Discharge Date: 07/13/19 Discharging Provider: NUNO Primary Care Provider: Gilbert Hayes Condition at Discharge: Stable Discharge Disposition: 01 Home, Self Care Discharge Facility Name: home - DIAGNOSES Admission Diagnoses: (1) Intertrochanteric fracture of right femur (2) Pre-op evaluation (3) History of hypertension (4) Temporal arteritis (5) History of ischemic vertebrobasilar artery cerebellar stroke Discharge Diagnoses with Status of Each Condition: (1) Intertrochanteric fracture of right femur pt walked with walker and PT on whole nurse station. PT recommend pt can go to home. pt want to go to home today. pt refused to have lab test for two nights, and refused to have Plavix 07/12/19 and Lovenox. pt took Plavix in home which can be as pt's dvt prophylaxis as well. pt is prescribed pain medication oxycodone PRN pt is advised to followup orthopedics in one to two weeks or as she needed (2) History of hypertension stable (3) Temporal arteritis stable (4) History of ischemic vertebrobasilar artery cerebellar stroke stable (5) anemia stable. HGB is stable at 9.1. pt denies lightheaded, dizziness, shortness of breath. pt walked with PT for long distance in hospital medical floor. it is likely from pt's acute blood loss from the surgery. - HPI History of Present Illness: refer from Dr. Ravi's HPI on 07/10/19 This is an absolutely harini elderly female who is very independent, still plays ping-pong competitively. 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 She is been unable to weight-bear and has pain in the right hip area. She came to the emergency room and was evaluated by Dr. Ramachandran and was found to have a right intertrochanteric hip fracture. She is on Plavix for history of TIA/CVA in the past. On review of systems she has not had a recent NM, nor has she ever had an NM. She has no history of valvular heart disease, shortness of breath, edema orthopnea. Years ago palpitations arose in the face of a high dose of steroids for temporal arteritis. These were PVCs and PAC's. She says that it gave her an irregular heartbeat but she was never told that she had atrial fibrillation. She has no lung or kidney diseases. She is postmenopausal, never been on hormone replacement therapy, and has been on steroids since approximately 2013 for temporal arteritis. As such she is at increased risk for osteoporosis. Dr. Fernando Lopez, orthopedics, has asked us to admit the patient and he will consult. He may be doing her surgery tomorrow which is Wednesday. But he will operate no later than Wednesday. - CONSULTS | PROCEDURES Consultations: Dr. Lopez Procedures: right hip repair, Short interTan nailing of Right intertrochanteric hip fracture - HOSPITAL COURSE Hospital Course: pt was admitted for right femur fracture from mechanically fall when she was playing pickleball. pt had right femur repaired by orthopedics surgeon. pt is doing well and recovery fast. pt walked with PT for long distance in hospital medical floor today. PT recommended pt can go to home today. pt strongly request to be d/c home today. The detail hospital course is as the below. (1) Intertrochanteric fracture of right femur pt walked with walker and PT on whole nurse station. PT recommend pt can go to home. pt want to go to home today. pt refused to have lab test for two nights, and refused to have Plavix 07/12/19 and Lovenox. pt took Plavix in home which can be as pt's dvt prophylaxis as well. pt is prescribed pain medication oxycodone PRN pt is advised to followup orthopedics in one to two weeks or as she needed (2) History of hypertension stable (3) Temporal arteritis stable (4) History of ischemic vertebrobasilar artery cerebellar stroke stable (5) anemia stable. HGB is stable at 9.1. pt denies lightheaded, dizziness, shortness of breath. pt walked with PT for long distance in hospital medical floor. it is likely from pt's acute blood loss from the surgery. - ALLERGIES Allergies/Adverse Reactions: Allergies Allergy/AdvReac Type Severity Reaction Status Date / Time penicillin G Allergy Unknown Unknown Verified 05/29/15 10:58 Any fragrances Allergy Severe Respiratory Uncoded 05/29/15 10:58 Preservative in IV solution Allergy Severe Itching Uncoded 05/29/15 10:58 - MEDICATIONS Home Medications: Ambulatory Orders Medication Instructions Recorded Confirmed Multivitamin [Multi-Vitamin Daily] 1 each PO DAILY 11/21/13 07/10/19 Prednisone 9 mg PO DAILY 11/21/13 07/10/19 Clopidogrel [Plavix] 75 mg PO DAILY 05/29/15 07/10/19 Ascorbic Acid [Vitamin C] 500 mg PO DAILY 07/10/19 07/10/19 Calcium Carbonate [Calcium] 600 mg PO DAILY 07/10/19 07/10/19 Cholecalciferol (Vitamin D3) 1,000 units PO DAILY 07/10/19 07/10/19 [Vitamin D3] Acetaminophen [Tylenol] 650 mg PO Q6HR PRN #30 tablet 07/13/19 oxyCODONE [Roxicodone] 5 mg PO Q4HR PRN #30 tablet 07/13/19 - PHYSICAL EXAM AT DISCHARGE General Appearance: positive: No acute distress, Alert. negative: Lethargic Eyes Bilateral: positive: Normal inspection, PERRL, EOMI, No lid inflammation ENT: positive: ENT inspection nml, Pharynx nml, No signs of dehydration. negative: Purulent nasal drainage Neck: positive: Nml inspection, Thyroid nml, No JVD, Trachea midline. negative: Thyromegaly, Lymphadenopathy (R), Lymphadenopathy (L), Stiff neck, Tracheal deviation Respiratory: positive: Chest non-tender, No respiratory distress, Breath sounds nml. negative: Wheezes, Rales, Rhonchi Cardiovascular: positive: Regular rate & rhythm, No murmur, No gallop. negative: Irregularly irregular, Extrasystoles, Tachycardia, Bradycardia, JVD present, Systolic murmur, Diastolic murmur Peripheral Pulses: positive: 2+ Abdomen: positive: Non-tender, No organomegaly, Nml bowel sounds, No distention. negative: Tenderness, Guarding, Rebound Back: positive: Nml inspection. negative: CVA tenderness (R), CVA tenderness (L ) Skin: positive: Color nml, No rash, Warm, Dry. negative: Cyanosis, Diaphoresis, Pallor Extremities: positive: Non-tender. negative: Calf tenderness, George's sign/cords Neurologic/Psychiatric: positive: Sensation nml. negative: Weakness, Sensory loss, Facial droop, Slurred/abnml speech - LABS Result Diagrams: 07/12/19 19:06 07/12/19 04:30 - SEPSIS Current Stage of Sepsis: Ruled out - FOLLOW UP Follow Up: you really want to go home today. you walked with walker and with PT on the whole medical floor. pt is prescribed a walker and pain medication. advise you followup orthopedics office in one to two weeks or as you needed for the followup appointment, and you may take your home medications as the scheduled. Please also followup PT's instruction safely walk. you may followup your PCP in one week, and followup orthopedics office in one to two weeks or as you needed. Should your symptoms return or worsen, you may present ER or call 911 for help. - TIME SPENT Time Spent in Discharge (Minutes): 50"
== END 2019-07-13 15:02 | disposition home or self-care (01) | DRG 481 ==
LOC: EDUNIT# → EDBD → ED 17:06 → MS3 18:12
PROVIDERS: ADMIT Specialist; ATTEND Nurse Practitioner Gerontology
PROC: 0QS634Z Reposition Right Upper Femur with Internal Fixation Device, Percutaneous Approach (ICD-10-PCS; principal; 2019-07-11 14:00)
DX: S72.141A Displaced intertrochanteric fracture of right femur, initial encounter for closed fracture (principal); D62 Acute posthemorrhagic anemia; W01.0XXA Fall on same level from slipping, tripping and stumbling without subsequent striking against object, initial encounter; Y93.73 Activity, racquet and hand sports; Y92.9 Unspecified place or not applicable; Y99.8 Other external cause status; M32.9 Systemic lupus erythematosus, unspecified; E03.9 Hypothyroidism, unspecified; I10 Essential (primary) hypertension; M85.80 Other specified disorders of bone density and structure, unspecified site; E78.00 Pure hypercholesterolemia, unspecified; I49.9 Cardiac arrhythmia, unspecified; R32 Unspecified urinary incontinence; M19.90 Unspecified osteoarthritis, unspecified site; Z53.29 Procedure and treatment not carried out because of patient's decision for other reasons; Z66 Do not resuscitate; Z79.02 Long term (current) use of antithrombotics/antiplatelets; Z79.52 Long term (current) use of systemic steroids; Z86.73 Personal history of transient ischemic attack (TIA), and cerebral infarction without residual deficits; Z86.79 Personal history of other diseases of the circulatory system; Z87.891 Personal history of nicotine dependence
CPT/HCPCS: 36415; 73502; 80048; 80053; 82607; 82728; 83540; 83615; 83690; 83735; 84466; 85014; 85018; 85025; 85045; 85610; 86850; 86900; 86901; 93005; 97116; 97161; 97165; 99284; 99285; A9270; J1650; J7120; J7512; 82272

== ENCOUNTER 2020-12-01 08:47 | Outpatient (CLI) | payer MEDICARE, OTHER | END 2020-12-01 08:48 | disposition EMS.NT | LOC: EMS 08:47 | DX: M25.551 Pain in right hip (principal); R51.9 Headache, unspecified; M25.532 Pain in left wrist; M25.531 Pain in right wrist; M25.572 Pain in left ankle and joints of left foot; M25.571 Pain in right ankle and joints of right foot; W01.0XXA Fall on same level from slipping, tripping and stumbling without subsequent striking against object, initial encounter; Z91.81 History of falling; Y92.22 Religious institution as the place of occurrence of the external cause; Z79.02 Long term (current) use of antithrombotics/antiplatelets; Z53.29 Procedure and treatment not carried out because of patient's decision for other reasons | CPT/HCPCS: A0425; A0429 ==

== ENCOUNTER 2020-12-01 09:05 | Emergency (ER) | payer MEDICARE, OTHER ==
[2020-12-01 09:35] LABS: BASOPHILS # (AUTO) 0.1 10^3/uL (0.0-0.1); BASOPHILS % (AUTO) 0.6 %; EOSINOPHILS # (AUTO) 0.2 10^3/uL (0.0-0.7); EOSINOPHILS % (AUTO) 1.4 %; HCT - HEMATOCRIT 40.3 % (37.0-47.0); LYMPHOCYTES # (AUTO) 1.1 10^3/uL (1.5-3.5); LYMPHOCYTES % (AUTO) 8.7 %; MEAN CORPUSCULAR HEMOGLOBIN 31.9 pg (27.0-31.0); MEAN CORPUSCULAR HGB CONC 32.3 g/dL (32.0-36.0); MEAN CORPUSCULAR VOLUME 98.8 fL (81.0-99.0); MEAN PLATELET VOLUME 9.1 fL (7.9-10.8); MONOCYTES # (AUTO) 0.7 10^3/uL (0.0-1.0); MONOCYTES % (AUTO) 5.6 %; NEUTROPHILS # (AUTO) 10.1 10^3/uL (1.5-6.6); NEUTROPHILS % (AUTO) 82.5 %; PLT - PLATELET COUNT 259 10^3/uL (130-450); RED BLOOD COUNT 4.08 10^6/uL (4.20-5.40); RED CELL DISTRIBUTION WIDTH 12.4 % (12.0-15.0); WHITE BLOOD COUNT 12.3 x10^3/uL (4.8-10.8)
[2020-12-01 09:45] LABS: ALBUMIN/GLOBULIN RATIO 1.7 (1.0-2.2); BILIRUBIN,TOTAL 0.8 mg/dL (0.2-1.0); CALCIUM 9.2 mg/dL (8.5-10.3); CREATININE 0.7 mg/dL (0.4-1.0); POTASSIUM 3.8 mmol/L (3.5-5.0); TOTAL PROTEIN 6.4 g/dL (6.7-8.2)
--- NOTE | 2020-12-01 09:54 | CT Report ---
PROCEDURE: HEAD WO INDICATIONS: fall head injury TECHNIQUE: Noncontrast 4.5 mm thick angled axial sections acquired from the foramen magnum to the vertex. For r adiation dose reduction, the following was used: automated exposure control, adjustment of mA and/or kV according to patient size. COMPARISON: 05/29/2015 FINDINGS: Image quality: Excellent. CSF spaces: Ventricles and extra-axial CSF spaces are prominent consistent with age-related atrophy. Brain: No midline shift. No intracranial masses or hemorrhage. There is diffuse periventricular and deep white matter hypoattenuation consistent with microvascular ischemic changes. Encephalomalacia o f the left cerebellum is again identified consistent with remote infarct. Skull and face: Calvarium and visualized facial bones are intact, without suspicious lesions. Sinuses: Minimal sphenoid sinus mucosal thickening. No air-fluid levels. IMPRESSION: No acute intracranial hemorrhage or skull fracture. Senescent changes of cerebral volume loss and microvascular ischemic changes. Remote left cerebellar infarction. Reviewed by: Nawaf Pompa DO on 12/01/2020 8:52 AM [facility] Approved by: Nawaf Pompa DO on 12/01/2020 8:52 AM [facility]I Station ID: [id number]
--- OUTSIDE RECORDS SUMMARY | 2020-12-01 09:54 | EXTERNAL MEDICAL SUMMARY RPT | Continuity of Care Document ---
:1930 Demographics Phone Unavailable Preferred Language Unknown Marital Status Unknown Temple Affiliation Unknown Race Unknown Ethnic Group Unknown Author Organization [facility] Address [address] [id number] Phone Social History date description facility [id number]
--- NOTE | 2020-12-01 09:59 | CT Report ---
PROCEDURE: CERVICAL SPINE WO INDICATIONS: fall head injury neck pain TECHNIQUE: Noncontrast 3 mm thick sections acquired from the skull base to the T4 level. Sagittal and coronal r eformats were then constructed. For radiation dose reduction, the following was used: automated exp osure control, adjustment of mA and/or kV according to patient size. COMPARISON: None. FINDINGS: Image quality: Excellent. Bones: There is no fracture or traumatic subluxation. Multilevel degenerative changes of the cervical spine. There is at least moderate intervertebral disc space loss at C2-C3 and C3-C4. Near complete i ntervertebral disc space loss at C5-C6. There is endplate degenerative changes with uncovertebral june nt and facet arthropathy. Partial ankylosis of the left facets of C2 and C3.. There is no significant bony spinal canal stenosis. Mild bony neuroforaminal stenosis is noted at C3-C4 and C5-C6. Soft tissues: Prevertebral soft tissues are normal in thickness. No paravertebral hematomas. No ap ical pneumothoraces. Vascular calcifications noted within the bilateral carotid arteries worse at th e bifurcations. IMPRESSION: No acute fracture or traumatic subluxation. Multilevel cervical spondylopathy. Reviewed by: Nawaf Pompa DO on 12/01/2020 8:58 AM [facility] Approved by: Nawaf Pompa DO on 12/01/2020 8:58 AM [facility] Station ID: [id number]
--- NOTE | 2020-12-01 10:27 | XRAY Report ---
PROCEDURE: Hip w/Pelvis 2-3V RT INDICATIONS: fall hip and pelvis pain TECHNIQUE: AP pelvis with lateral view(s) of the bilateral hip(s). COMPARISON: Hip radiographs dated 07/10/2019 FINDINGS: Bones: Patient is status post surgical fixation from previous intratrochanteric fracture of the right hip. Osseous structures are demineralized. There is no evidence of hardware complication or evidence of acute fracture. Mild degenerative changes of the hip. Mild blunting of the left hip and spine whi ch are incompletely evaluated. Soft tissues: The visualized bowel gas pattern is normal. Soft tissue calcifications adjacent to the right hip likely representing sequela of prior trauma and heterotopic ossification. Small enthesophy te formations of the greater trochanters. IMPRESSION: Postsurgical changes of the right hip without evidence of acute complication or acute fr acture. Reviewed by: Nawaf Pompa DO on 12/01/2020 9:26 AM [facility] Approved by: Nawaf Pompa DO on 12/01/2020 9:26 AM [facility] Station ID: [id number]
--- NOTE | 2020-12-01 10:30 | XRAY Report ---
PROCEDURE: Femur 2V RT INDICATIONS: fall shantell pain TECHNIQUE: 2 views of the femur were acquired. COMPARISON: Same-day hip radiographs FINDINGS: Bones: Postsurgical changes of the hip partially imaged on this exam. No evidence of consultation of the inferior aspect. There is no fracture. No acute osseous abnormality of the imaged knee. Degenerat sylvia changes of the knee are noted. Soft tissues: Likely small knee joint effusion. Vascular calcifications throughout the leg. IMPRESSION: No acute osseous abnormality. Reviewed by: Nawaf Pompa DO on 12/01/2020 9:28 AM [facility] Approved by: Nawaf Pompa DO on 12/01/2020 9:28 AM [facility] Station ID: [id number]
--- NOTE | 2020-12-01 10:33 | XRAY Report ---
PROCEDURE: Hand 3 View RT INDICATIONS: fall lateral hand pain TECHNIQUE: 3 views of the hand(s) acquired. COMPARISON: 10/24/2018 FINDINGS: Bones: No acute fracture or dislocation. Remote fracture of the fifth metacarpal. Advanced degenerati ve changes of the wrist and hand this is worse at the triscaphe and first carpometacarpal joint. Soft tissues: No suspicious soft tissue calcifications. IMPRESSION: No acute osseous abnormality. Reviewed by: Nawaf Pompa DO on 12/01/2020 9:32 AM [facility] Approved by: Nawaf Pompa DO on 12/01/2020 9:32 AM [facility] Station ID: [id number]
--- NOTE | 2020-12-01 11:15 | ED Physician Documentation ---
PD HPI Fall - Stated complaint Stated Complaint: GLF - Chief complaint Chief Complaint: Trauma Hd/Nk - History obtained from History obtained from: Patient - History of Present Illness Mechanism of injury: Tripped Fall distance: Standing position Where injury occurred: Other (voodoo) Timing - onset: Today Injury(ies) location: Face, Right Upper Extremity, Right Lower Extremity Quality of pain: Pain Associated symptoms: No: LOC, AMS, Amnesia, Seizures, Ear drainage Symptoms improve with: Rest Worsens with: Movement, Palpation Contributing factors: Anticoagulated (palvix) Similar symptoms before: Diagnosis (femur fracture) Recently seen: Not recently seen - Additional information Additional information: 89-year-old female with a prior history of a fall and right femur fracture s/p medullary shantell and she is on Plavix. She was in voodoo today when 2 people walked through the door at the same time and she was next to a stand which she tripped over and fell onto her right side. She has some trouble getting up and has pain in her right hip and buttocks as well as her right hand both of her ankles and her left wrist. She has struck her face did not have loss of consciousness and denies headache nausea or vomiting. She does have pain in her neck. Review of Systems Constitutional: denies: Fever Eyes: denies: Decreased vision Ears: denies: Ear pain Nose: denies: Congestion Throat: denies: Sore throat Cardiac: denies: Chest pain / pressure Respiratory: denies: Dyspnea, Cough GI: denies: Abdominal Pain, Nausea, Vomiting : denies: Dysuria Skin: denies: Rash Musculoskeletal: reports: Neck pain, Extremity pain. 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: Hysterectomy HEENT: Cataracts - Present Medications Home Medications: Ambulatory Orders Medication Instructions Recorded Confirmed Multivitamin [Multi-Vitamin Daily] 1 each PO DAILY 11/21/13 07/10/19 Prednisone 9 mg PO DAILY 11/21/13 07/10/19 Clopidogrel [Plavix] 75 mg PO DAILY 05/29/15 07/10/19 Ascorbic Acid [Vitamin C] 500 mg PO DAILY 07/10/19 07/10/19 Calcium Carbonate [Calcium] 600 mg PO DAILY 07/10/19 07/10/19 Cholecalciferol (Vitamin D3) 1,000 units PO DAILY 07/10/19 07/10/19 [Vitamin D3] Acetaminophen [Tylenol] 650 mg PO Q6HR PRN #30 tablet 07/13/19 oxyCODONE [Roxicodone] 5 mg PO Q4HR PRN #30 tablet 07/13/19 traMADol [Ultram] 50 - 100 mg PO Q6H PRN #20 tablet 12/01/20 - Allergies Allergies/Adverse Reactions: Allergies Allergy/AdvReac Type Severity Reaction Status Date / Time penicillin G Allergy Unknown Unknown Verified 12/01/20 09:12 Any fragrances Allergy Severe Respiratory Uncoded 12/01/20 09:12 Preservative in IV solution Allergy Severe Itching Uncoded 12/01/20 09:12 - Social History Does the pt smoke?: No Smoking Status: Never smoker Does the pt drink ETOH?: Yes Does the pt have substance abuse?: No - Immunizations Immunizations are current?: Yes - POLST Patient has POLST: No POLST Status: DNR PD ED PE NORMAL - Vitals Vital signs reviewed: Yes (Hypertensive) - General General: Alert and oriented X 3, No acute distress, Well developed/nourished - HEENT HEENT: Atraumatic, PERRL, EOMI - Neck Neck: Supple, no meningeal sign, Other (There is tenderness to the cervical spine on the right side and into the sternocleidomastoid on the right) - Cardiac Cardiac: RRR, No murmur - Respiratory Respiratory: No respiratory distress, Clear bilaterally, Other (No chest wall tenderness) - Abdomen Abdomen: Normal bowel sounds, Soft, Non tender, Non distended - Back Back: No CVA TTP, No spinal TTP - Derm Derm: Normal color, Warm and dry, No rash - Extremities Extremities: No deformity, Other (There is swelling point tenderness over the right hand over the lateral aspect of the hand worse with movement. There is point tenderness on the right buttocks and the sciatic notch and the patient's hip joint runs through a full range of motion without pain. The patient's left wrist is w/o ttp) Results - Vitals Vitals: Vital Signs - 24 hr 12/01/20 12/01/20 12/01/20 09:07 09:48 10:18 Temperature 36.5 C Heart Rate 81 75 72 Respiratory 19 18 14 Rate Blood Pressure 228/102 H 208/90 H 206/81 H O2 Saturation 94 100 98 12/01/20 12/01/20 12/01/20 10:30 11:00 11:30 Temperature Heart Rate 80 79 71 Respiratory 19 13 14 Rate Blood Pressure 206/100 H 179/89 H 190/88 H O2 Saturation 98 98 99 12/01/20 12/01/20 12/01/20 12:00 12:30 13:00 Temperature Heart Rate 72 86 76 Respiratory 12 16 10 L Rate Blood Pressure 162/84 H 173/87 H 197/100 H O2 Saturation 100 99 99 12/01/20 12/01/20 13:30 14:00 Temperature Heart Rate 84 81 Respiratory 14 12 Rate Blood Pressure 179/90 H 175/87 H O2 Saturation 100 100 Oxygen O2 Source Room air - Labs Labs: Laboratory Tests 12/01/20 12/01/20 09:10 09:10 WBC 12.3 H RBC 4.08 L Hgb 13.0 Hct 40.3 MCV 98.8 MCH 31.9 H MCHC 32.3 RDW 12.4 Plt Count 259 MPV 9.1 Neut # (Auto) 10.1 H Lymph # (Auto) 1.1 L Ada # (Auto) 0.7 Eos # (Auto) 0.2 Baso # (Auto) 0.1 Absolute Nucleated RBC 0.00 Nucleated RBC % 0.0 Sodium 137 Potassium 3.8 Chloride 97 L Carbon Dioxide 31 Anion Gap 9.0 BUN 23 H Creatinine 0.7 Estimated GFR (MDRD) 79 L Glucose 139 H Calcium 9.2 Total Bilirubin 0.8 AST 18 ALT 20 Alkaline Phosphatase 56 Total Protein 6.4 L Albumin 4.0 Globulin 2.4 Albumin/Globulin Ratio 1.7 Lipase 28 - Rads (name of study) hand R Radiology: Prelim report reviewed (Impression: No acute osseous abnormality.), EMP read indepedently, See rad report right hip Radiology: Prelim report reviewed (Impression: Postsurgical changes of the right hip without evidence of acute complication or acute fracture.), EMP read indepedently, See rad report right femur Radiology: Prelim report reviewed (Impression: No acute osseous abnormality.), EMP read indepedently, See rad report CT head Radiology: Prelim report reviewed (Impression: No acute intracranial hemorrhage or skull fracture. Senescent changes of cerebral volume loss and microvascular ischemic changes. Remote left cerebellar infarction.), EMP read indepedently, See rad report Cervical spine Radiology: Prelim report reviewed, EMP read indepedently, See rad report PD MEDICAL DECISION MAKING - ED course Complexity details: reviewed results, re-evaluated patient, considered differential, d/w patient ED course: 89-year-old female with a fall in voodoo has injured her right hip and hand she has fallen on her head and is anticoagulated. There is no evidence of hemorrhage. There is no evidence of fracture in any of the x-rays taken including her right hand her right hip her right femur her head and her neck.We initially attempted to ambulate the patient in the emergency department and she refused as too painful. She does not want to go home stating that she has a walker for use at home and a brace for her right hand as well as specific ways to get around in her house and to stay on her first floor. She has a at home to help care for and she has family coming at the end of the month. She is mostly invested in being there for that. We were able to provide Toradol 60 mg IM to the patient and she is able to ambulate in the department with a walker and requests to go home. Departure - Departure Disposition: 01 Home, Self Care Clinical Impression: Contusion of right hip and thigh Qualifiers: Encounter type: initial encounter Qualified Code(s): S70.01XA - Contusion of right hip, initial encounter Sprain of right hand Qualifiers: Encounter type: initial encounter Qualified Code(s): S63.91XA - Sprain of unspecified part of right wrist and hand, initial encounter Concussion Qualifiers: Encounter type: initial encounter Loss of consciousness presence/duration: without LOC Qualified Code(s): S06.0X0A - Concussion without loss of consciousness, initial encounter Cervical strain, acute Qualifiers: Encounter type: initial encounter Qualified Code(s): S16.1XXA - Strain of muscle, fascia and tendon at neck level, initial encounter Condition: Stable Instructions: ED Concussion, ED Contusion Hip, ED Sprain Strain Neck, ED Sprain Hand Follow-Up: Brett Hernandez MD [Primary Care Provider] - Prescriptions: traMADol [Ultram] 50 - 100 mg PO Q6H PRN #20 tablet PRN Reason: Pain Discharge Date/Time: 12/01/20 14:16
[2020-12-01] MEDS ORDERED: KETOROLAC 60 MG/2 ML VIAL IM STA (13:33)
[2020-12-01 14:02] VITALS: BP 175/87
== END 2020-12-01 14:16 | disposition home or self-care (01) ==
LOC: EDUNIT# → ED 09:05
DX: S06.0X0A Concussion without loss of consciousness, initial encounter (principal); S16.1XXA Strain of muscle, fascia and tendon at neck level, initial encounter; S63.91XA Sprain of unspecified part of right wrist and hand, initial encounter; S70.01XA Contusion of right hip, initial encounter; W01.0XXA Fall on same level from slipping, tripping and stumbling without subsequent striking against object, initial encounter; Y92.22 Religious institution as the place of occurrence of the external cause; M47.812 Spondylosis without myelopathy or radiculopathy, cervical region; M32.9 Systemic lupus erythematosus, unspecified; I10 Essential (primary) hypertension; Z79.02 Long term (current) use of antithrombotics/antiplatelets; Z66 Do not resuscitate
CPT/HCPCS: 36415; 80053; 83690; 85025; 96372; 99284

== ENCOUNTER 2020-12-27 16:14 | Outpatient (CLI) | payer MEDICARE, OTHER ==
--- NOTE | 2020-12-27 17:08 | XRAY Report ---
PROCEDURE: Hips 3-4V BILAT INDICATIONS: FALL, BILATERAL HIP PAIN TECHNIQUE: 4 views of the hip were acquired. COMPARISON: 12/01/2020 FINDINGS: Bones: Patient is status post prior fixation of right proximal femur with intramedullary shantell and femo ral neck surgical screw seen. Right hip alignment is unchanged from prior study. Old healed intertroc hanteric fracture in proximal right femur is seen. There is cortical irregularity involving right sup erior pubic ramus. No gross hardware loosening or failure. Osteoarthritic changes are noted in bilate ral hip joints. No evidence of avascular necrosis of femoral head. No suspicious bony lesions. The v isualized pelvic ring appears intact. Soft tissues: No suspicious soft tissue calcifications or masses. IMPRESSION: 1. Likely acute to subacute fracture involving the right superior pubic ramus. 2. Healing/healed right intertrochanteric fracture with prior internal fixation. No gross hardware lo osening or failure. 3. No hip dislocation. Bilateral hip joint osteoarthritis. No evidence of avascular necrosis of femor al head. Reviewed by: Jefferson Franklin MD on 12/27/2020 5:07 PM PDT Approved by: Jefferson Franklin MD on 12/27/2020 5:07 PM PDT Station ID: [id number]
== END 2020-12-27 16:15 | disposition home or self-care (01) ==
LOC: DI.N 16:14
PROVIDERS: ATTEND Physician Assistant
DX: S72.141D Displaced intertrochanteric fracture of right femur, subsequent encounter for closed fracture with routine healing (principal); M16.0 Bilateral primary osteoarthritis of hip; R93.6 Abnormal findings on diagnostic imaging of limbs

== ENCOUNTER → 2021-01-28 | Outpatient (CLI) | payer MEDICARE, OTHER ==
--- NOTE | 2021-01-28 14:26 | XRAY Report ---
PROCEDURE: Ribs 2 View RT INDICATIONS: R SIDE RIB PX TECHNIQUE: 3 views of the right ribs were acquired. COMPARISON: None FINDINGS: Surgical changes and devices: None. Bones and chest wall: No fractures or dislocations. No suspicious bony lesions. Overlying soft tis sues appear unremarkable. Lungs and pleura: The visualized lung appears clear. No pleural effusions or pneumothorax are visib le. IMPRESSION: No visualized acute fracture or dislocation. However, occult injury cannot be excluded. Recommend zeina rt interval imaging follow-up in 7-10 days as clinically indicated for additional evaluation. Reviewed by: Laquita Can MD on 01/28/2021 2:25 PM PDT Approved by: Laquita Can MD on 01/28/2021 2:25 PM PDT Station ID: [id number]
--- NOTE | 2021-01-28 14:27 | XRAY Report ---
PROCEDURE: Lumbar Spine 2 View INDICATIONS: LUMBAR BACK PX TECHNIQUE: 3 views of the lumbar spine were acquired. COMPARISON: None. FINDINGS: Bones: 5 [id number] vertebrae are present. There is there is grade 1 retrolisthesis of L1 on L 2 with foraminal narrowing. Multilevel degenerative disc space narrowing is present most severe at L5 -S1. Severe foraminal narrowing is noted L5-S1, moderate L4-5. No vertebral body compression fracture s. No suspicious bony lesions. Soft tissues: Overlying bowel gas pattern is normal. No suspicious soft tissue calcifications. IMPRESSION: Multilevel degenerative changes most notable at L5-S1 as above. No visualized acute frac ture or dislocation. However, occult injury cannot be excluded. Recommend short interval imaging foll ow-up in 7-10 days as clinically indicated for additional evaluation. Reviewed by: Laquita Can MD on 01/28/2021 2:26 PM PDT Approved by: Laquita Can MD on 01/28/2021 2:26 PM PDT Station ID: [id number]
== END ==
LOC: DI.N 11:46
PROVIDERS: ATTEND Family Medicine
DX: R07.81 Pleurodynia (principal); M54.5 Low back pain; M51.37 Other intervertebral disc degeneration, lumbosacral region

== ENCOUNTER 2021-04-05 07:08 | Outpatient (CLI) | payer MEDICARE, OTHER ==
--- NOTE | 2021-04-05 10:44 | Ultrasound Report ---
PROCEDURE: Abdomen Complete INDICATIONS: ABD PAIN TECHNIQUE: Real-time scanning was performed of the abdominal and retroperitoneal organs, with image documentatio n. COMPARISON: Correlation is made with prior CT report only, 03/20/2011 FINDINGS: Liver: Liver is normal in size and demonstrates a coarsened echotexture. Gallbladder: No gallstones or significant sludge can be seen. The gallbladder wall does not appear th ickened. There is no specific pericholecystic fluid. The sonographic Duenas's sign is negative. Biliary ducts: Intrahepatic bile ducts are non-dilated. Extrahepatic bile duct caliber measures 3 m m. Normal is 6-7 mm or less in diameter, or 10 mm or less post-cholecystectomy. Pancreas: Visualized portions of the pancreas are sonographically normal. Spleen: Spleen is normal in size and demonstrates a calcified focus that measures up to 5 mm. Kidneys: Kidneys are normal in size and echotexture. Right kidney measures 9.6 cm long; left kidney measures 8.5 cm long. No hydronephrosis or nephrolithiasis. No solid masses. At the inferior pole of the right kidney, there is a 7 mm cyst seen. Aorta: Visualized aorta is normal in caliber at less than 3 cm. Atherosclerotic plaque can be seen throughout. Iliacs: Proximal common iliac arteries are normal in caliber at less than 2.5 cm. IVC: Intrahepatic inferior vena cava is patent. Miscellaneous: No free abdominal fluid. IMPRESSION: The gallbladder demonstrates a normal sonographic appearance. No biliary dilatation is seen. No hydronephrosis is seen. Incidental note is made of: Splenic calcification 7 mm simple appearing right renal cyst Atherosclerotic plaque of the aorta Reviewed by: Yahir Yancey MD on 04/05/2021 9:43 AM [facility] Approved by: Yahir Yancey MD on 04/05/2021 9:43 AM [facility] Station ID: [id number]
== END 2021-04-05 07:09 | disposition home or self-care (01) ==
LOC: DI 07:08
PROVIDERS: ATTEND Internal Medicine
DX: R10.9 Unspecified abdominal pain (principal)